=== PATIENT | female | born 1980 | race Caucasian/White ===

== ENCOUNTER 2021-10-17 09:20 | Outpatient (REF) | payer OTHER, SELFPAY ==
[2021-10-17 15:10] LABS: CT PCR NOT DETECTED (Not Detect.); NG PCR NOT DETECTED (Not Detect.)
[2021-10-18 12:28] LABS: BV Int Neg Control Negative (Negative); BV Int Pos Control Positive (Positive)
== END 2021-10-17 09:21 | disposition home or self-care (01) ==
LOC: HO.LAB 09:20
PROVIDERS: Visit Provider Obstetrics & Gynecology
DX: Z01.411 Encounter for gynecological examination (general) (routine) with abnormal findings (principal); N93.9 Abnormal uterine and vaginal bleeding, unspecified; N90.89 Other specified noninflammatory disorders of vulva and perineum
CPT/HCPCS: 87480; 87491; 87510; 87591; 87660; 99212

== ENCOUNTER 2021-11-28 08:56 | Outpatient (REF) | payer OTHER, SELFPAY | END 2021-11-28 08:57 | disposition home or self-care (01) | LOC: HO.LAB 08:56 | PROVIDERS: PCP Internal Medicine; Visit Provider Obstetrics & Gynecology | DX: N93.9 Abnormal uterine and vaginal bleeding, unspecified (principal); N90.89 Other specified noninflammatory disorders of vulva and perineum; L98.8 Other specified disorders of the skin and subcutaneous tissue; Z32.02 Encounter for pregnancy test, result negative | CPT/HCPCS: 11400; 56605; 56606; 58100; 81025; 88305 ==

== ENCOUNTER → 2021-12-18 10:39 | Outpatient (BNVA) | payer OTHER, SELFPAY | PROVIDERS: PCP Internal Medicine; Visit Provider Obstetrics & Gynecology | DX: Z30.09 Encounter for other general counseling and advice on contraception (principal); N90.89 Other specified noninflammatory disorders of vulva and perineum; Z80.3 Family history of malignant neoplasm of breast | CPT/HCPCS: 99212 ==

== ENCOUNTER 2022-12-25 15:25 | Outpatient (REF) | payer OTHER, SELFPAY ==
[2022-12-25 17:38] LABS: HCG Quantitative < 2 mIU/mL; Thyroid Stimulating Hormone 1.85 uIU/mL (0.32-4.0)
[2022-12-26 06:58] LABS: DHEA Sulfate 116 mcg/dL (19-237); Follicle Stimulating Hormone 8.8 mIU/mL; Prolactin 8.9 ng/mL
[2022-12-30 16:23] LABS: Testosterone, Total 24 ng/dL (2-45)
== END 2022-12-25 15:26 | disposition home or self-care (01) ==
LOC: HO.LAB 15:25
PROVIDERS: PCP Internal Medicine; Visit Provider Advanced Practice Midwife
DX: N92.6 Irregular menstruation, unspecified (principal); L68.0 Hirsutism; R23.2 Flushing; N91.2 Amenorrhea, unspecified; Z30.09 Encounter for other general counseling and advice on contraception
CPT/HCPCS: 36415; 81025; 82627; 83001; 83498; 84146; 84402; 84403; 84443; 84702; 99212

== ENCOUNTER 2022-12-25 15:25 | Outpatient (AMB) | payer OTHER, SELFPAY ==
[2022-12-25 15:26] VITALS: BP 100/60; BMI 19.8
--- NOTE | 2022-12-25 15:26 | MHC.OFFVIS ---
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 Crm Manager: Crm Manager Present (Peyton) Allergies diphenhydramine [From BENADRYL] Allergy (Unknown, Verified 12/25/22 15:33) HIVES hydrocodone [From VICODIN] Allergy (Unknown, Verified 12/25/22 15:33) HIVES oxycodone [Percocet] Allergy (Unknown, Verified 12/25/22 15:33) hives, nausea, vomiting, rash Benadryl Allergy (Unknown, Uncoded 12/25/22 15:33) unknown From PERCOCET Allergy (Unknown, Uncoded 12/25/22 15:33) UNKNOWN Vicodin Allergy (Unknown, Uncoded 12/25/22 15:33) unknown Is last menstrual period known: Yes Last menstrual period: 12/16/22 Post menopausal: No HPI HPI Comments History of Present Illness Details She is here for late menses, LMP 11/14/22. She reports a negative home test. Normal menses in the past they vary for several days in frequency. She also reports they will often sync up with her friends cycle. Currently sexually active and not using any form of BC. She does not want future . She is interested in the IUD. Denies any recent stress, medications, or surgeries. She admits to being sick this week due to exposure to smoking a hookah and vomited. Denies acne or hot flashes. Admits to new chin hairs over the last few years. [facility] Medical History (Updated 12/25/22 @ 16:20 by Dorothea Schuler) Abnormal facial hair Anterior cervical lymphadenopathy Anxiety control counseling Finger fracture, left (~09/2017) GERD (gastroesophageal reflux disease) Hirsutism IBS (irritable colon syndrome) Late menses Surgical History Hx laparoscopic cholecystectomy S/P myringotomy with insertion of tube Family History Father Cardiovascular disease Sister Breast cancer Maternal Grandmother Ovarian cancer Paternal Grandmother Breast cancer Ovarian cancer Paternal Grandfather Pancreatic cancer Paternal Aunt No problems noted. Social History Housing: House Alcohol intake: current Patient Tobacco Use Status: Former Tobacco user Tobacco use type: Cigarette Years Smoked: quit e-Cigarette/Vaping Use: Never Used Second Hand Smoke Exposure: No Current occupational status: employed Female Reproductive History Menstrual Duration of menses: 3-5 days Date of last menstrual period: 12/16/22 control method: none Total pregnancies: 0 Number of Living Children: 0 Physical Exam Vital Signs: Last Vital Signs BP 100/60 12/25/22 15:26 BMI result Body Mass Index 19.8 Const General: cooperative, healthy appearing, comfortable, no acute distress, well developed, alert and awake Results AMB Test Urine AMB Test Urine Negative Last Edit by JACK Alfredo on 12/25/22 15:39 Results Reviewed Results Reviewed: Laboratory Last Values [facility] Negative 12/25/22 15:38 Assessment & Plan Assessment & Plan (1) Late menses: Code(s): N92.6 - Irregular menstruation, unspecified Plan: Discussed: Counseled re: perimenopause vs menopause. Report any unscheduled bleeding, bleeding episodes less than 21 days apart or heavy prolonged menstrual bleeding. Repeat home UPT as needed. Recommended expected management and monitoring cycles. Patient preferred not to wait and requested labs sooner than later. Labs ordered today. Follow up TV-pt. preference. Encouraged patient to sign up for patient portal. All of her questions and concerns were addressed to the best of my ability and shared decision making. She is agreeable to plan of care. (2) control counseling: Code(s): Z30.09 - Encounter for other general counseling and advice on contraception Plan: Discussed different BC IUD options including Mirena, Kyleena and Nexplanon. Literature given. Advised to use condoms for now. (3) Hirsutism: Code(s): L68.0 - Hirsutism Orders: Orders 17 Hydroxyprogesterone Today L68.0 - Hirsutism, N92.6 - Irregular menstruation, unspecified DHEA Sulfate Today L68.0 - Hirsutism, N92.6 - Irregular menstruation, unspecified HCG Quantitative Today L68.0 - Hirsutism, N92.6 - Irregular menstruation, unspecified Prolactin Today L68.0 - Hirsutism, N92.6 - Irregular menstruation, unspecified Testosterone, Free/Total Today L68.0 - Hirsutism, N92.6 - Irregular menstruation, unspecified Thyroid Stimulating Hormone Today L68.0 - Hirsutism, N92.6 - Irregular menstruation, unspecified Follicle Stimulating Hormone Today L68.0 - Hirsutism, N92.6 - Irregular menstruation, unspecified, R23.2 - Flushing AMB HCG Urine Test Today N91.2 - Amenorrhea, unspecified Coding Level of Care Code Est Pt Level 3 (96976) Diagnoses Late menses N92.6 control counseling Z30.09 Hirsutism L68.0
== END 2022-12-25 16:01 | disposition home or self-care (01) ==
LOC: HO.HWS 15:25
PROVIDERS: PCP Internal Medicine; Visit Provider Advanced Practice Midwife
DX: N92.6 Irregular menstruation, unspecified (principal); Z30.09 Encounter for other general counseling and advice on contraception; L68.0 Hirsutism; N91.2 Amenorrhea, unspecified
CPT/HCPCS: 99213

== ENCOUNTER 2023-01-08 12:47 | Outpatient (AMB) | payer OTHER, SELFPAY ==
--- NOTE | 2023-01-08 12:47 | A.OFFVIS_ITS ---
Intake Intake Visit Reasons: TV Lab Results/TV ok per provider Intake Note: The patient agreed to use of a medical laboratory scientist during this encounter. Scribed for TRISTAN Canales by Dorothea Schuler medical laboratory scientist, on 01/08/2023 at 12:57 pm EST. Flexo Operator Required: No Allergies diphenhydramine [From BENADRYL] Allergy (Unknown, Verified 01/08/23 12:47) HIVES hydrocodone [From VICODIN] Allergy (Unknown, Verified 01/08/23 12:47) HIVES oxycodone [Percocet] Allergy (Unknown, Verified 01/08/23 12:47) hives, nausea, vomiting, rash Benadryl Allergy (Unknown, Uncoded 01/08/23 12:47) unknown From PERCOCET Allergy (Unknown, Uncoded 01/08/23 12:47) UNKNOWN Vicodin Allergy (Unknown, Uncoded 01/08/23 12:47) unknown Is last menstrual period known: Yes Last menstrual period: 01/01/23 Post menopausal: No HPI HPI Comments History of Present Illness Details Doximity live video 12:57 pm - 1:07 pm. Phone Call due to Covid-19 Pandemic. Video was utilized. She presents via phone/live video to discuss lab results due to irregular menses and facial hair. Recently while on vacation at [facility] she was seen at the ED, w/pelvic pain, and had other symptoms, was found to have Covid and ovarian cysts. Menses this week has been very heavy, she is still on quarantine at home. Covid symptoms- cough and cold. [facility] Medical History Abnormal facial hair Anterior cervical lymphadenopathy Anxiety control counseling Finger fracture, left (~09/2017) GERD (gastroesophageal reflux disease) Hirsutism IBS (irritable colon syndrome) Late menses Surgical History Hx laparoscopic cholecystectomy S/P myringotomy with insertion of tube Family History Father Cardiovascular disease Sister Breast cancer Maternal Grandmother Ovarian cancer Paternal Grandmother Breast cancer Ovarian cancer Paternal Grandfather Pancreatic cancer Paternal Aunt No problems noted. Social History Housing: House Alcohol intake: current Patient Tobacco Use Status: Former Tobacco user Tobacco use type: Cigarette Years Smoked: quit e-Cigarette/Vaping Use: Never Used Second Hand Smoke Exposure: No Current occupational status: employed Female Reproductive History Menstrual Duration of menses: 6-7 days Date of last menstrual period: 01/01/23 control method: none Physical Exam Const General: cooperative, healthy appearing, comfortable, no acute distress, well developed, alert and awake Results Reviewed Results Reviewed: Laboratory Tests 12/25/22 12/25/22 16:15 16:15 TSH 1.85 FSH 8.8 Prolactin 8.9 Total Testosterone 24 Fr Testosterone Dialys 1.0 DHEA Sulfate 116 Beta HCG, Quant < 2 17-Hydroxyprogesterone 58 Assessment & Plan Assessment & Plan (1) Encounter to discuss test results: Code(s): Z71.2 - Person consulting for explanation of examination or test findings Plan: Discussed: Lab results: normal. Release of records from [facility], will need them for review and a plan of care for the cyst follow up. She prefers not to do another transvaginal US at this time. Hydrate well, monitor VB, pelvic pain and if experience pain, dizziness, or lightheadedness report to ED. All of her questions and concerns were addressed to the best of my ability and shared decision making. She is agreeable to plan of care. Await reords for follow up. Telehealth Telehealth Location of provider rendering services: practice address Location of patient: address on file Patient Identification confirmed using: Name, : Yes Telehealth method: video Patient verbally consented to treatment: Yes Patient verbally consented to billing insurance company: Yes Patient informed of any privacy concerns related to visit: Yes Coding Level of Care Code Tele Est Pt Level 3 (31673) Diagnoses Encounter to discuss test results Z71.2
== END 2023-01-08 15:17 | disposition home or self-care (01) ==
LOC: HO.HWS 12:47
PROVIDERS: PCP Internal Medicine; Visit Provider Advanced Practice Midwife
DX: Z71.2 Person consulting for explanation of examination or test findings (principal)
CPT/HCPCS: 99213

== ENCOUNTER → 2023-01-08 12:47 | Outpatient (BNVA) | payer OTHER, SELFPAY | PROVIDERS: PCP Internal Medicine; Visit Provider Advanced Practice Midwife ==

== ENCOUNTER 2023-01-29 10:20 | Outpatient (AMB) | payer OTHER, SELFPAY ==
[2023-01-29 10:25] VITALS: BP 98/60; BMI 19.5
--- NOTE | 2023-01-29 10:25 | A.OFFVIS_ITS ---
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 On Site Nurse Required: No Information Interpreted: non-clinical & clinical Funeral Pre Arrangement Specialist: Funeral Pre Arrangement Specialist Present ([employer] JACK) Accompanied by: Self / Same As Patient Allergies diphenhydramine [From BENADRYL] Allergy (Unknown, Verified 01/29/23 10:30) HIVES hydrocodone [From VICODIN] Allergy (Unknown, Verified 01/29/23 10:30) HIVES oxycodone [Percocet] Allergy (Unknown, Verified 01/29/23 10:30) hives, nausea, vomiting, rash Benadryl Allergy (Unknown, Uncoded 01/29/23 10:30) unknown From PERCOCET Allergy (Unknown, Uncoded 01/29/23 10:30) UNKNOWN Vicodin Allergy (Unknown, Uncoded 01/29/23 10:30) unknown Is last menstrual period known: Yes Last menstrual period: 01/02/23 HPI HPI Comments History of Present Illness Details Presenting for annual exam. The patient went to the emergency room on 01/15 [facility] with pelvic pain and was diagnosed with a 4.7 cm left complex cyst possibly hydrosalpinx and was discharged home, since then the patient pelvic/abdominal pain and nausea and vomiting has resolved Last Pap/HPV was negative in 03/30 No previous screening Mammogram In addition the patient is interested in removing her bilateral vulvar skin tags [facility] Medical History Hirsutism Late menses Abnormal facial hair control counseling Anxiety GERD (gastroesophageal reflux disease) Anterior cervical lymphadenopathy IBS (irritable colon syndrome) Finger fracture, left (~09/2017) Surgical History Hx laparoscopic cholecystectomy S/P myringotomy with insertion of tube Family History Father Cardiovascular disease Sister Breast cancer Maternal Grandmother Ovarian cancer Paternal Grandmother Breast cancer Ovarian cancer Paternal Grandfather Pancreatic cancer Paternal Aunt No problems noted. Social History Household Members: Significant Other and Children Housing: House Alcohol intake: current Alcohol intake frequency: 3 or more drinks per day Patient Tobacco Use Status: Former Tobacco user Tobacco use type: Cigarette Years Smoked: quit e-Cigarette/Vaping Use: Never Used Second Hand Smoke Exposure: No Current occupational status: employed Current occupation: Realtor Sexually active: Yes Sexual orientation: Straight/Heterosexual Gender identity: Female Female Reproductive History Menstrual Date of last menstrual period: 01/02/23 control method: condoms Total pregnancies: 4 Full term: 3 Number of Living Children: 3 Ab induced: 1 Date of last pap smear: 03/26/19 Review of Systems Const All systems reviewed & are unremarkable except as noted in HPI and below Card Reports as per HPI Resp Reports as per HPI GI Reports as per HPI and Reports no additional complaints Reports as per HPI Physical Exam Vital Signs: Last Vital Signs BP 98/60 01/29/23 10:25 BMI result Body Mass Index 19.5 Const General: cooperative, healthy appearing and comfortable Chest Chest palpation & inspection: normal inspection of the chest and normal palpation of entire chest wall Breast/axilla inspection: normal inspection of the breasts and normal inspection of the axillae Breast/axilla palpation: normal palpation of the breasts, normal palpation of the axillae and no axillary lymphadenopathy Resp Effort & Inspection: normal respiratory effort Auscultation: clear to auscultation bilaterally Percussion: percussion normal Cardio Palpation: normal PMI Rate: regular rate Rhythm: regular rhythm Heart sounds: no murmurs and no rubs Peripheral pulses: Peripheral pulses 2+ throughout GI Inspection: Yes normal to inspection Palpation (GI): Soft to palpation, nontender, no guarding, not rigid and No hepatosplenomegaly present Percussion: Yes normal to percussion Auscultation: normal bowel sounds Rectal Exam - Female: deferred General: Yes bladder normal to palpation External Female Exam: lesion Speculum Exam - Vagina: normal appearance of the vagina, normal palpation, normal vaginal discharge and not erythematous Speculum Exam - Cervix: normal appearance of the cervix and normal palpation Bimanual exam- vagina & uterus: normal bimanual exam, normal palpation, uterine size normal, bladder normal to palpation, consistency normal and normal palpation Bimanual Exam- Adnexa, other: normal adnexae, no masses and no tenderness Office Procedures REFRIGERATED CARGO CLERK Biopsy Before the procedure was started d/w patient the procedure, alternatives ( do nothing, medical rx), & all the risks associated with the procedure ( bleeding , infection, vulvar scarring, painful intercourse, injury to vessels, possible need for transfusion with all its risks) then patient signed the consent. Preop dx: 3 right labia majora an 1 left labia majora skin tags Op: 3 right labia majora an 1 left labia majora skin tags excision Post op: Same Anesthesia: Lidocaine 1% 7 cc used Procedure: Using betadine the area was scrubbed and draped in the usual manner. 3 cc of lidocaine was used for anesthesia at the 3 right labia majora an 1 left labia majora skin tags areas ; using scissors and pickup the 3 right labia majora an 1 left labia majora skin tags were excised. Pressure was used for hemostasis. The patient tolerated the procedure well. Discharge Instructions: The patient was instructed to schedule an appointment in 2 weeks for follow-up and to call if temp>100.4, area of the biopsy redness or pain, nausea/vomiting. This note was generated with a voice recognition program. Some errors may have been overlooked during the review of this note. Sometimes these errors may affect the content or meaning of a given sentence. 56359-Rwsrdu of Vulva/Perineum 16386-Wrposj of Vulva/Perineum, additional site Procedure code (CPT) selection complete Assessment & Plan Assessment & Plan (1) Well woman exam: Code(s): Z01.419 - Encounter for gynecological examination (general) (routine) without abnormal findings Plan: Cotesting not indicated this year. Mammogram ordered. Counseled the patient about the recommended dietary allowance of 1000 mg of Calcium & 600 IU of vitamin D. The patient was instructed to perform monthly self-breast exams and to schedule an annual exam in a year; All questions answered and the patient verbalized understanding. Instructed the patient to schedule annual exam in a year (2) Complex cyst of uterine adnexa: Code(s): N83.8 - Other noninflammatory disorders of ovary, fallopian tube and broad ligament Plan: UPT done in the office was negative, GC/CT taken. Discussed with the patient the complex ovarian cyst by ultrasound. Discussed with the patient the Ultrasound findings, the main limitation of transvaginal ultrasonography alone as a diagnostic tool to distinguish benign from malignant masses relates to its lack of specificity and low positive predictive value for cancer. The differential diagnosis discussed with the patient includes the following but not limited to: benign and malignant gynecological and non-gynecological causes. Laboratory evaluation include UPT and GC/CT , serum tumor marker CA 125 . Discussed with the patient that CA 125 is a protein associated with epithelial ovarian malignancies, but also frequently expressed at lower levels by nonmalignant tissue. Elevation of CA 125 levels may occur in nonmalignant gynecologic conditions, and in non-gynecologic cancers, It is most useful in postmenopausal women and in identifying non mucinous epithelial cancer. The CA 125 level is elevated in 80% of patients with epithelial ovarian cancer but in only 50% of patients with stage I disease. The overall sensitivity of CA 125 testing in distinguishing benign from malignant adnexal masses reportedly ranges from 61% to 90%; discussed with the patient the specificity, positive predictive value and negative predictive value. Discussed with the patient options of treatment , in case CA 125 is not elevated, including laparoscopy ovarian cystectomy/oophorectomy vs. expectant management with repeat US in repeating pelvic US in 12 weeks from previous US. If the ovarian complex cyst is persistent larger and / or more complex looking, or higher CA 125 will refer to gynecologic Oncology. All pros, cons, risks and benefits of each approach were discussed with the patient including but not limited to a delay in the diagnosis and treatment of ovarian cancer affecting the prognosis; The patient decided to go ahead with expectant management. Instructions given the patient to schedule a 3 months follow-up ultrasound appointment. All questions were answered & the patient verbalized understanding and agreed with the plan. (3) Vulvar lesion: Comment: Right labia x3 Left labia x1 Code(s): N90.89 - Other specified noninflammatory disorders of vulva and perineum Plan: Excision of bilateral labial skin tags done, see procedure note Orders: Orders CA-125 Today N83.8 - Other noninflammatory disorders of ovary, fallopian tube an d broad ligament Surgical Today N90.89 - Other specified noninflammatory disorders of vulva and perineum MM screening mammo BI Today Z12.31 - Encounter for screening mammogram for malignant neoplasm of breast US pelvic and transvaginal 3 Months N83.299 - Other ovarian cyst, unspecified side AMB REFRIGERATED CARGO CLERK Biopsy Today N90.89 - Other specified noninflammatory disorders of vulva and perineum CT NG by PCR Today N83.8 - Other noninflammatory disorders of ovary, fallopian tube and broad ligament Coding Level of Care Code Est Pt Level 3 (57748) Est Pt Prev Care 40-64y(99673) Diagnoses Well woman exam Z01.419 Complex cyst of uterine adnexa N83.8 Vulvar lesion N90.89 CPT Codes REFRIGERATED CARGO CLERK Biopsy - CPT: 84553-Ysagus of Vulva/Perineum ([id number]) REFRIGERATED CARGO CLERK Biopsy - CPT: 82581-Flqras of Vulva/Perineum, additional site ([id number])
== END 2023-01-29 11:28 | disposition home or self-care (01) ==
PROVIDERS: Visit Provider Obstetrics & Gynecology
DX: Z01.419 Encounter for gynecological examination (general) (routine) without abnormal findings (principal); N83.8 Other noninflammatory disorders of ovary, fallopian tube and broad ligament; N90.89 Other specified noninflammatory disorders of vulva and perineum
CPT/HCPCS: 56605; 56606; 99213; 99396

== ENCOUNTER 2023-01-29 10:20 | Outpatient (REF) | payer OTHER, SELFPAY ==
[2023-01-29 16:45] LABS: CT PCR NOT DETECTED (Not Detect.); NG PCR NOT DETECTED (Not Detect.)
== END 2023-01-29 10:21 | disposition home or self-care (01) ==
LOC: HO.LNP 10:20
PROVIDERS: Visit Provider Obstetrics & Gynecology
DX: Z01.419 Encounter for gynecological examination (general) (routine) without abnormal findings (principal); N83.8 Other noninflammatory disorders of ovary, fallopian tube and broad ligament; N90.89 Other specified noninflammatory disorders of vulva and perineum; N83.299 Other ovarian cyst, unspecified side
CPT/HCPCS: 0353U; 56605; 56606; 88305; 88312; 99212; 99396

== ENCOUNTER 2023-05-01 10:16 | Outpatient (AMB) | payer OTHER, SELFPAY ==
--- NOTE | 2023-05-01 10:16 | A.OFFPC_ITS ---
Vital Signs 05/01/23 10:17 Height 5 ft 3 in Weight 109 lb BMI 19.3 BP 122/88 Blood Pressure Location Lt brachial Position Sitting Pulse 82 Pulse Source Auscultation Pulse Oximetry (%) 96 Oxygen Delivery Method Room Air Intake Visit Reasons: PE+ NEEDS PHQ9+THRIVE Executive Office Manager Required: No Accompanied by: Self / Same As Patient Allergies diphenhydramine [From BENADRYL] Allergy (Unknown, Verified 05/01/23 10:17) HIVES hydrocodone [From VICODIN] Allergy (Unknown, Verified 05/01/23 10:17) HIVES oxycodone [Percocet] Allergy (Unknown, Verified 05/01/23 10:17) hives, nausea, vomiting, rash Benadryl Allergy (Unknown, Uncoded 03/20/23 11:32) unknown From PERCOCET Allergy (Unknown, Uncoded 03/20/23 11:32) UNKNOWN Vicodin Allergy (Unknown, Uncoded 03/20/23 11:32) unknown Medication List - Last Reconciled 05/01/23 by Edilia Wiley MD ascorbic acid-collagen 30-833.3 mg (Collagen Skin Renewal) tabs PO biotin 1 mg PO DAILY cetirizine (Zyrtec) 10 mg PO DAILY PRN cyanocobalamin (vitamin B-12) 1,000 mcg PO DAILY lorazepam 1 mg PO DAILY PRN Tobacco use date assessed: 03/20/23 Dental Screening Dental Screen Date: 05/01/23 Did you have a dental visit in the last 12 months?: Yes Did you have a dental problem in the last 6 months where you did not have access to dental care?: No Was dental information given to patient?: Patient has dentist HPI PE+ NEEDS PHQ9+THRIVE HPI Details 42-year-old female with a history of gen eralized anxiety disorder and allergic rhinitis last seen in 2020 coming in for physical exam. Patient has seen the gynecology in January 2023 having pelvic pain with a 4.7 cm left complex cyst possibly hydrosalpinx. Patient has had some biopsy on the labia showing benign keratosis and polyp seborrheic keratosis this was done in January 2023 [facility] Medical History (Updated 05/01/23 @ 10:47 by Edilia Wiley MD) Hirsutism Late menses Abnormal facial hair control counseling Family planning advice Family planning Well woman exam Anterior cervical lymphadenopathy Anxiety GERD (gastroesophageal reflux disease) IBS (irritable colon syndrome) Finger fracture, left (~09/2017) Surgical History Hx laparoscopic cholecystectomy S/P myringotomy with insertion of tube Family History Father Cardiovascular disease Sister Breast cancer Maternal Grandmother Ovarian cancer Paternal Grandmother Breast cancer Ovarian cancer Paternal Grandfather Pancreatic cancer Paternal Aunt No problems noted. Social History (Updated 05/01/23 @ 10:35 by Edilia Wiley MD) Household Members: Significant Other and Children Housing: House Alcohol intake: current Alcohol intake frequency: 3 or more drinks per day Comment: 1-2 a week 2 glasses Patient Tobacco Use Status: Former Tobacco user Tobacco use type: Cigarette Years Smoked: quit 1999 e-Cigarette/Vaping Use: Never Used Second Hand Smoke Exposure: No service: No Current occupational status: employed Current occupation: [employer] Current occupational exposures/hazards: No Sexual orientation: Straight/Heterosexual Gender identity: Female Cognitive needs: No Hearing needs: No Vision needs: Yes Questionnaire PHQ-9 Over the last 2 weeks, how often have you been bothered by any of the following problems? 1. Little interest or pleasure in doing things: several days 2. Feeling down, depressed, or hopeless: not at all 3. Trouble falling or staying asleep, or sleeping too much: more than half the days 4. Feeling tired or having little energy: not at all 5. Poor appetite or overeating: not at all 6. Feeling bad about yourself - or that you are a failure or have let yourself or your family down: not at all 7. Trouble concentrating on things, such as reading the newspaper or watching television: more than half the days 8. Moving or speaking so slowly that other people could have noticed. Or the opposite - being so fidgety or restless that you have been moving around a lot more than usual: not at all 9. Thoughts that you would be better off or of hurting yourself in some way: not at all Total score: 5 Depression Screening Interpretation: Positive Depression Screening Done: Yes 08400 - PHQ-9 Billing: Yes Source: Developed by Drs. Dell Vasquez, Justa Enrique, Ronald Farmer and colleagues, with an educational meaghan from [employer]. Thrive Questionnaire Date Thrive assessed: 05/01/23 I am a: Patient What is your living situation today?: I have a steady place to live Within the past 12 months, did the food you bought not last and you didn't have the money to get more?: Never true Within the past 12 months, did you worry whether your food would run out before you got money to buy more?: Never true Do you have trouble paying for medicines?: No Do you have trouble getting transportation to medical appointments?: No Do you have trouble paying your heating and electricity bill?: No Do you have trouble taking care of your child, family member or friend?: No Do you have trouble with day-to-day activities such as bathing, preparing meals, shopping, managing finances, etc.?: No Are you currently unemployed and looking for a job?: No Are you interested in more education?: No Please select the resources that you would like help with: None Currently or been in a relationship where the following occur: no concerns reported AUDIT C Alcohol Use Questionnaire (AUDIT-C) 1. How often do you have a drink containing alcohol?: 2-3 times a week 2. How many drinks containing alcohol do you have on a typical day when you are drinking?: 1 or 2 3. How often do you have six or more drinks on one occasion?: Never Total Score: 3 BRENT-7 AMB Questionnaire BRENT-7 Date BRENT - 7 assessed: 05/01/23 Feeling nervous, anxious, or on edge: 3 = Nearly every day Not being able to stop or control worryin = More than half the days Worrying too much about different things: 2 = More than half the days Trouble relaxin = More than half the days Being so restless that it is hard to sit still: 1 = Several days Becoming easily annoyed or irritable: 1 = Several days Feeling afraid as if something awful might happen: 2 = More than half the days Total BRENT-7 score (0-4 normal; 5-9 mild; 10-14 moderate; 15-21 severe): 13 Source: Developed by Drs. Dell L. ChristinaJusta morel, Ronald Farmer and colleagues, with an educational meaghan from [employer]. BRENT-7 Assessment Billing BRENT-7 Assessment Tool: BRENT-7 Assessment 60396 Review of Systems Const Denies poor appetite and Denies weakness Eyes Denies no additional complaints ENT Reports Normal hearing present, Denies dizziness, Denies nasal congestion, Denies tinnitus and Denies sore throat Card Denies chest pain, Denies syncope, Denies rapid heart rate and Denies dyspnea Resp Denies cough and Denies dyspnea GI Denies change in stool character, Reports constipation, Denies diarrhea, Denies nausea and Denies vomiting Denies urinary frequency, Denies difficulty voiding and Denies dysuria Neuro Reports Normal hearing present, Denies confusion, Denies dizziness, Denies syncope and Denies weakness Psych Denies confusion Physical exam (Primary Care) Vital Signs: Oxygen Delivery Method Room Air 05/01/23 10:17 BMI result Body Mass Index 19.3 Tobacco/Smoking Status: Tobacco use Status Tobacco use date assessed 03/20/23 03/20/23 11:34 Patient Tobacco Use Status Former Tobacco user 03/20/23 11:34 Tobacco use type Cigarette 03/20/23 11:34 e-Cigarette/Vaping Use Never Used 03/20/23 11:34 Depression Screening Interpretation: Positive Thrive Assessment: Date of Thrive Assessment Date Thrive assessed 03/20/23 03/20/23 11:34 Currently or been in a relationship where the following occur: no concerns reported Const General: alert and awake; No confusion Orientation/consciousness: No confusion HENMT Head: Yes normocephalic Ears: external ears normal and TM's normal bilaterally Face and sinus: Yes normal facial exam Mouth: moist mucous membranes Throat: Yes tonsils normal Eyes Conjunctivae: conjunctivae normal Pupils: Equal, round and reactive pupils present and Pupil accommodation reflex normal Direct Ophthalmoscopy: normal light reflex Neck Neck: No lymphadenopathy Thyroid: Thyroid normal Chest Chest palpation & inspection: normal inspection of the chest Resp Effort & Inspection: normal respiratory effort and no audible wheezes Auscultation: clear to auscultation bilaterally, no crackles, no wheezes and lung sounds not diminished Cardio Rate: regular rate Rhythm: regular rhythm Peripheral pulses: radial pulses present and dorsalis pedis present GI Palpation (GI): no masses Auscultation: normal bowel sounds and normoactive bowel sounds Rectal Exam - Female: deferred Skin General skin exam: no rashes or lesions noted Rashes: no rashes Neuro General: deep tendon reflexes 2+ bilaterally and No confusion Cranial nerves: Yes Equal, round and reactive pupils present, Yes Midline tongue present, Yes Normal hearing present and Yes Ability to bilaterally elevate shoulders present Cognition (Neuro): normal cognition Gait exam (Neuro): Normal gait present Motor exam (neuro): 5/5 motor strength present throughout Deep tendon reflexes (DTR's): Right brachioradialis reflex intensity grade: 2+, Left brachioradialis reflex intensity grade: 2+, Right patellar reflex intensity grade: 2+ and Left patellar reflex intensity grade: 2+ Extrem General: No edema Assessment and Plan Assessment & Plan (1) Annual physical exam: Code(s): Z00.00 - Encounter for general adult medical examination without abnormal findings (2) Allergic rhinitis: Code(s): J30.9 - Allergic rhinitis, unspecified Qualifiers: Allergic rhinitis seasonality: seasonal Allergic rhinitis trigger: unspecified Qualified Code(s): J30.2 - Other seasonal allergic rhinitis Plan: Continue with allergy medication as needed (3) GERD (gastroesophageal reflux disease): Code(s): K21.9 - Gastro-esophageal reflux disease without esophagitis Plan: Avoid the foods that causes that usually spicy foods, tomato products, juices, coffee, soda and foods that your sensitive to. After eating do not lie down, allow 3-4 hours before in lie down. And keep the head of bed above 30 degrees to avoid the acid from going up. (4) Generalized anxiety disorder: Comment: Declined any referral for counseling, Code(s): F41.1 - Generalized anxiety disorder Plan: Continue with medication as needed (5) Complex cyst of uterine adnexa: Code(s): N83.8 - Other noninflammatory disorders of ovary, fallopian tube and broad ligament Plan: Patient follows up with Gynecology and planned repeat US (6) Breast cancer screening by mammogram: Code(s): Z12.31 - Encounter for screening mammogram for malignant neoplasm of breast Plan: Reminded about mammogram (7) Upper back pain on left side: Code(s): M54.9 - Dorsalgia, unspecified (8) Nail dystrophy: Comment: L big toe Code(s): L60.3 - Nail dystrophy Orders: Orders Comprehensive Met. Panel Today F41.1 - Generalized anxiety disorder Free T4 (Free Thyroxine) Today F41.1 - Generalized anxiety disorder Thyroid Stimulating Hormone Today F41.1 - Generalized anxiety disorder Vitamin D 25-OH Total Today F41.1 - Generalized anxiety disorder PT Evaluation and Treatment Today M54.9 - Dorsalgia, unspecified Complete Blood Count Auto Diff Today F41.1 - Generalized anxiety disorder Lipid Panel Today E78.00 - Pure hypercholesterolemia, unspecified, F41.1 - Generalized anxiety disorder Vitamin B12 and Folate Today F41.1 - Generalized anxiety disorder Referrals Podiatry Referral L60.3 - Nail dystrophy Medications: New escitalopram oxalate (Lexapro) 5 mg PO DAILY 30 tabs 4RF F41.1 - Generalized anxiety disorder Refilled lorazepam 1 mg PO DAILY PRN 10 tabs 0RF anxiety F41.1 - Generalized anxiety disorder Coding Level of Care Code Est Pt Prev Care 40-64y(18146) Diagnoses Annual physical exam Z00.00 Seasonal allergic rhinitis, unspecified trigger J30.2 Allergic rhinitis seasonality: seasonal Allergic rhinitis trigger: unspecified GERD (gastroesophageal reflux disease) K21.9 Generalized anxiety disorder F41.1 Complex cyst of uterine adnexa N83.8 Breast cancer screening by mammogram Z12.31 Upper back pain on left side M54.9 Nail dystrophy L60.3 Additional Codes BRENT-7 Assessment Billing - BRENT-7 Assessment Tool: BRENT-7 Assessment 67656 ([id number])
[2023-05-01 10:17] VITALS: BP 122/88; PULSE 82; O2SAT 96; BMI 19.3
== END 2023-05-01 11:44 | disposition home or self-care (01) ==
PROVIDERS: PCP Internal Medicine; Visit Provider Internal Medicine
DX: Z00.00 Encounter for general adult medical examination without abnormal findings (principal); J30.2 Other seasonal allergic rhinitis; K21.9 Gastro-esophageal reflux disease without esophagitis; F41.1 Generalized anxiety disorder; N83.8 Other noninflammatory disorders of ovary, fallopian tube and broad ligament; M54.9 Dorsalgia, unspecified; L60.3 Nail dystrophy
CPT/HCPCS: 96127; 99396

== ENCOUNTER 2023-10-08 13:44 | Outpatient (AMB) | payer OTHER, SELFPAY ==
--- NOTE | 2023-10-08 13:44 | MHC.PC.OV ---
Intake Visit Reasons: Med Follow Up/[phone] Licensed Tax Consultant Required: No Allergies diphenhydramine [From BENADRYL] Allergy (Unknown, Verified 10/08/23 13:46) HIVES hydrocodone [From VICODIN] Allergy (Unknown, Verified 10/08/23 13:46) HIVES oxycodone [Percocet] Allergy (Unknown, Verified 10/08/23 13:46) hives, nausea, vomiting, rash Benadryl Allergy (Unknown, Uncoded 10/08/23 13:46) unknown From PERCOCET Allergy (Unknown, Uncoded 10/08/23 13:46) UNKNOWN Vicodin Allergy (Unknown, Uncoded 10/08/23 13:46) unknown Tobacco use date assessed: 10/08/23 Dental Screening Dental Screen Date: 05/14/23 HPI [facility] Follow Up/[phone] HPI Details 40-year-old obese female with a history of ADHD on Vyvanse, generalized anxiety disorder fatty liver coming in for follow-up. Last seen in 03/31/2023. [facility] Medical History (Updated 05/01/23 @ 10:47 by Edilia Wiley MD) Hirsutism Late menses Abnormal facial hair control counseling Family planning advice Family planning Well woman exam Anterior cervical lymphadenopathy Anxiety GERD (gastroesophageal reflux disease) IBS (irritable colon syndrome) Finger fracture, left (~09/2017) Surgical History Hx laparoscopic cholecystectomy S/P myringotomy with insertion of tube Family History Father Cardiovascular disease Sister Breast cancer Maternal Grandmother Ovarian cancer Paternal Grandmother Breast cancer Ovarian cancer Paternal Grandfather Pancreatic cancer Paternal Aunt No problems noted. Social History (Updated 05/01/23 @ 10:35 by Edilia Wiley MD) Household Members: Significant Other and Children Housing: House Alcohol intake: current Alcohol intake frequency: 3 or more drinks per day Comment: 1-2 a week 2 glasses Patient Tobacco Use Status: Former Tobacco user Tobacco use type: Cigarette Years Smoked: quit 1999 e-Cigarette/Vaping Use: Never Used Second Hand Smoke Exposure: No service: No Current occupational status: employed Current occupation: Realtor Current occupational exposures/hazards: No Sexual orientation: Straight/Heterosexual Gender identity: Female Cognitive needs: No Hearing needs: No Vision needs: Yes Questionnaire Thrive Questionnaire Date Thrive assessed: 05/01/23 AUDIT C Alcohol Use Questionnaire (AUDIT-C) 1. How often do you have a drink containing alcohol?: 2-3 times a week 2. How many drinks containing alcohol do you have on a typical day when you are drinking?: 1 or 2 3. How often do you have six or more drinks on one occasion?: Never Total Score: 3 BRENT-7 AMB Questionnaire BRENT-7 Date BRENT - 7 assessed: 10/08/23 Source: Developed by Drs. Dell Vasquez, Justa Enrique, Ronald Farmer and colleagues, with an educational meaghan from [employer]. Physical exam (Primary Care) Tobacco/Smoking Status: Tobacco use Status Tobacco use date assessed 10/08/23 10/08/23 13:47 Patient Tobacco Use Status Former Tobacco user 10/08/23 13:47 Tobacco use type Cigarette 10/08/23 13:47 e-Cigarette/Vaping Use Never Used 10/08/23 13:47 Thrive Assessment: Date of Thrive Assessment Date Thrive assessed 05/01/23 10/08/23 13:47 Telehealth Telehealth Telehealth Platform: Telephone Location of provider rendering services: practice address Location of patient: address on file Patient Identification confirmed using: Name, : Yes Telehealth method: voice only (iphone ( patient is driving ) ) Patient verbally consented to treatment: Yes Patient verbally consented to billing insurance company: Yes Patient informed of any privacy concerns related to visit: Yes Minutes spent on Phone/Video with Pt.: 25 Assessment and Plan Assessment & Plan (1) Generalized anxiety disorder: Comment: Declined any referral for counseling, Code(s): F41.1 - Generalized anxiety disorder Plan: Continuing with Lexapro and lorazepam as needed. Had a long discussion with the patient regarding the anxiety that she is having and regarding the medication that she is taking. Advised to take lorazepam as needed but to avoid anything that she needs concentration on when under the medication as she will be under the influence of this medication. . Patient has never started on Lexapro and feels that she is doing better right now (2) GERD (gastroesophageal reflux disease): Code(s): K21.9 - Gastro-esophageal reflux disease without esophagitis Plan: Avoid the foods that causes that usually spicy foods, tomato products, juices, coffee, soda and foods that your sensitive to. After eating do not lie down, allow 3-4 hours before in lie down. And keep the head of bed above 30 degrees to avoid the acid from going up. (3) Breast cancer screening by mammogram: Code(s): Z. - Encounter for screening mammogram for malignant neoplasm of breast Plan: Patient is reminded about the mammogram and reminded about the blood work. Orders: Orders MM tomosynthesis screening BI Today Z. - Encounter for screening mammogram for malignant neoplasm of breast Medications: Refilled lorazepam 1 mg PO DAILY PRN 20 tabs 0RF anxiety F41.1 - Generalized anxiety disorder Discontinued escitalopram oxalate (Lexapro) Discontinued Reason: Patient Refused 5 mg PO DAILY 90 tabs 1RF F41.1 - Generalized anxiety disorder Coding Level of Care Code Tele Est Pt Level 4 (64215) Diagnoses Generalized anxiety disorder F41.1 GERD (gastroesophageal reflux disease) K21.9 Breast cancer screening by mammogram Z05.11
== END 2023-10-08 14:28 | disposition home or self-care (01) ==
LOC: HO.HMGH 13:44
PROVIDERS: PCP Internal Medicine; Visit Provider Internal Medicine
DX: F41.1 Generalized anxiety disorder (principal); K21.9 Gastro-esophageal reflux disease without esophagitis; Z12.31 Encounter for screening mammogram for malignant neoplasm of breast
CPT/HCPCS: 99214

== ENCOUNTER 2024-03-19 13:19 | Outpatient (AMB) | payer OTHER, SELFPAY ==
--- NOTE | 2024-03-19 13:22 | MHC.PC.OV ---
Vital Signs 03/19/24 13:23 Height 5 ft 3 in Weight 117 lb 2 oz BMI 20.7 BP 110/60 Blood Pressure Location Lt brachial Position Sitting Pulse 93 Pulse Source Pulse Oximeter Pulse Oximetry (%) 92 Oxygen Delivery Method Room Air Intake Visit Reasons: PE Intake Note: Patient is here today for a physical. Pt decline flu shot today. Ear Machine Operator Required: No Sales Exec: Not Required per policy Accompanied by: Self / Same As Patient Allergies diphenhydramine [From BENADRYL] Allergy (Unknown, Verified 03/19/24 13:23) HIVES hydrocodone [From VICODIN] Allergy (Unknown, Verified 03/19/24 13:23) HIVES oxycodone [Percocet] Allergy (Unknown, Verified 03/19/24 13:23) hives, nausea, vomiting, rash Benadryl Allergy (Unknown, Uncoded 03/19/24 13:23) unknown From PERCOCET Allergy (Unknown, Uncoded 03/19/24 13:23) UNKNOWN Vicodin Allergy (Unknown, Uncoded 03/19/24 13:23) unknown Medication List - Last Reconciled 03/19/24 by Edilia Wiley MD ascorbic acid-collagen 30-833.3 mg (Collagen Skin Renewal) tabs PO [BEE pollen PO] biotin 1 mg PO DAILY cetirizine (Zyrtec) 10 mg PO DAILY PRN cyanocobalamin (vitamin B-12) 1,000 mcg PO DAILY lorazepam 1 mg PO DAILY PRN Tobacco use date assessed: 03/19/24 Dental Screening Dental Screen Date: 05/14/23 HPI PE HPI Details 76-year-old obese male with history of impaired glucose tolerance gout COPD hypertension BPH lumbar degenerative disc disease bilateral knee osteoarthritis severe obstructive sleep apnea coming in for follow-up. Last seen in 11/27/2023. Patient's colonoscopy is up-to-date 2022. Patient follows up with Pulmonary February 11 2024 with this obstructive sleep apnea. Advised to get pulmonary function test. Patient was advised to get a CT scan of the chest also for smoking history. [facility] History (Updated 03/19/24 @ 13:30 by Edilia Wiley MD) Hirsutism Late menses Abnormal facial hair control counseling Family planning advice Family planning Well woman exam Anterior cervical lymphadenopathy Anxiety GERD (gastroesophageal reflux disease) IBS (irritable colon syndrome) Finger fracture, left (~09/2017) Surgical History Hx laparoscopic cholecystectomy S/P myringotomy with insertion of tube Family History Father Cardiovascular disease Sister Breast cancer Maternal Grandmother Ovarian cancer Paternal Grandmother Breast cancer Ovarian cancer Paternal Grandfather Pancreatic cancer Paternal Aunt No problems noted. Social History (Updated 03/19/24 @ 13:33 by Edilia Wiley MD) Household Members: Significant Other and Children Housing: House Alcohol intake: current Alcohol intake frequency: 3 or more drinks per day Comment: 2-3 a week glass of wine/sake Patient Tobacco Use Status: Former Tobacco user Tobacco use type: Cigarette Years Smoked: quit 1999 e-Cigarette/Vaping Use: Never Used Second Hand Smoke Exposure: No service: No Current occupational status: employed Current occupation: Realtor Current occupational exposures/hazards: No Sexual orientation: Straight/Heterosexual Gender identity: Female Cognitive needs: No Hearing needs: No Vision needs: Yes Questionnaire PHQ-9 Over the last 2 weeks, how often have you been bothered by any of the following problems? 1. Little interest or pleasure in doing things: not at all 2. Feeling down, depressed, or hopeless: not at all 3. Trouble falling or staying asleep, or sleeping too much: more than half the days 4. Feeling tired or having little energy: several days 5. Poor appetite or overeating: not at all 6. Feeling bad about yourself - or that you are a failure or have let yourself or your family down: not at all 7. Trouble concentrating on things, such as reading the newspaper or watching television: not at all 8. Moving or speaking so slowly that other people could have noticed. Or the opposite - being so fidgety or restless that you have been moving around a lot more than usual: not at all 9. Thoughts that you would be better off or of hurting yourself in some way: not at all Total score: 3 Depression Screening Interpretation: Negative Depression Screening Done: Yes Source: Developed by Drs. Dell Vasquez, Justa BRonald Trimble and colleagues, with an educational meaghan from [employer]. Thrive Questionnaire Date Thrive assessed: 03/19/24 I am a: Patient What is your living situation today?: I have a steady place to live Within the past 12 months, did the food you bought not last and you didn't have the money to get more?: Often true Within the past 12 months, did you worry whether your food would run out before you got money to buy more?: Often true Do you have trouble paying for medicines?: No Do you have trouble getting transportation to medical appointments?: No Do you have trouble paying your heating and electricity bill?: No Do you have trouble taking care of your child, family member or friend?: No Do you have trouble with day-to-day activities such as bathing, preparing meals, shopping, managing finances, etc.?: No Are you currently unemployed and looking for a job?: No Are you interested in more education?: No Please select the resources that you would like help with: None Currently or been in a relationship where the following occur: No concerns reported THRIVE Score: 2 AUDIT C Alcohol Use Questionnaire (AUDIT-C) 2. How many drinks containing alcohol do you have on a typical day when you are drinking?: 3 or 4 Total Score: 1 BRENT-7 AMB Questionnaire BRENT-7 Date BRENT - 7 assessed: 03/19/24 Feeling nervous, anxious, or on edge: 1 = Several days Not being able to stop or control worryin = Not at all Worrying too much about different things: 1 = Several days Trouble relaxin = Several days Being so restless that it is hard to sit still: 1 = Several days Becoming easily annoyed or irritable: 0 = Not at all Feeling afraid as if something awful might happen: 0 = Not at all Total BRENT-7 score (0-4 normal; 5-9 mild; 10-14 moderate; 15-21 severe): 4 Source: Developed by Drs. Dell Vasquez, Ronald Granados and colleagues, with an educational meaghan from [employer]. Review of Systems Const Denies poor appetite and Denies weakness Eyes Denies no additional complaints ENT Reports Normal hearing present, Denies dizziness, Denies nasal congestion, Denies tinnitus and Denies sore throat Card Denies chest pain, Denies syncope, Denies rapid heart rate and Denies dyspnea Resp Denies cough and Denies dyspnea GI Denies change in stool character, Reports constipation, Denies diarrhea, Denies nausea and Denies vomiting Denies urinary frequency, Denies difficulty voiding and Denies dysuria Neuro Reports Normal hearing present, Denies confusion, Denies dizziness, Denies syncope and Denies weakness Psych Denies confusion Physical exam (Primary Care) Vital Signs: Last Vital Signs Pulse 93 03/19/24 13:23 BP 110/60 03/19/24 13:23 Pulse Ox 92 03/19/24 13:23 Oxygen Delivery Method Room Air 03/19/24 13:23 BMI result Body Mass Index 20.7 Tobacco/Smoking Status: Tobacco use Status Tobacco use date assessed 03/19/24 03/19/24 13:27 Patient Tobacco Use Status Former Tobacco user 03/19/24 13:27 Tobacco use type Cigarette 03/19/24 13:27 e-Cigarette/Vaping Use Never Used 03/19/24 13:27 PHQ-9: PHQ-9 Score PHQ-9: Total score 3 03/19/24 13:27 Depression Screening Interpretation: Negative Thrive Assessment: Date of Thrive Assessment Date Thrive assessed 03/19/24 03/19/24 13:27 Currently or been in a relationship where the following occur: No concerns reported Const General: No confusion Orientation/consciousness: No confusion HENMT Head: Yes normocephalic Ears: external ears normal and TM's normal bilaterally Face and sinus: Yes normal facial exam Mouth: moist mucous membranes Throat: Yes tonsils normal Eyes Conjunctivae: conjunctivae normal Pupils: Equal, round and reactive pupils present and Pupil accommodation reflex normal Direct Ophthalmoscopy: normal light reflex Neck Neck: No lymphadenopathy Thyroid: Thyroid normal Chest Chest palpation & inspection: normal inspection of the chest Resp Effort & Inspection: normal respiratory effort and no audible wheezes Auscultation: clear to auscultation bilaterally, no crackles, no wheezes and lung sounds not diminished Cardio Rate: regular rate Rhythm: regular rhythm Peripheral pulses: radial pulses present and dorsalis pedis present GI Palpation (GI): no masses Auscultation: normal bowel sounds and normoactive bowel sounds Rectal Exam - Female: deferred Skin General skin exam: no rashes or lesions noted Rashes: no rashes Neuro General: No confusion Cranial nerves: Yes Equal, round and reactive pupils present and Yes Normal hearing present Cognition (Neuro): normal cognition Gait exam (Neuro): Normal gait present Motor exam (neuro): 5/5 motor strength present throughout Deep tendon reflexes (DTR's): Right brachioradialis reflex intensity grade: 2+, Left brachioradialis reflex intensity grade: 2+, Right patellar reflex intensity grade: 2+ and Left patellar reflex intensity grade: 2+ Extrem General: No edema Coding Level of Care Code Est Pt Prev Care 40-64y(12831) Diagnoses Annual physical exam Z00.00 Breast cancer screening by mammogram Z12. Generalized anxiety disorder F41.1 Gastroesophageal reflux disease without esophagitis K21.9 Esophagitis presence: without esophagitis Assessment & Plan Assessment & Plan (1) Annual physical exam: Code(s): Z00.00 - Encounter for general adult medical examination without abnormal findings Category: Medical Plan: Patient is advised to eat healthy, keep well hydrated, keep active and have adequate sleep. (2) Breast cancer screening by mammogram: Code(s): Z12. - Encounter for screening mammogram for malignant neoplasm of breast Category: Medical Plan: Patient is reminded about the mammogram (3) Generalized anxiety disorder: Comment: Declined any referral for counseling, Code(s): F41.1 - Generalized anxiety disorder Category: Social Hx Plan: Continue with present medication as needed (4) GERD (gastroesophageal reflux disease): Code(s): K21.9 - Gastro-esophageal reflux disease without esophagitis Category: Medical Qualifiers: Esophagitis presence: without esophagitis Qualified Code(s): K21.9 - Gastro-esophageal reflux disease without esophagitis Plan: Avoid the foods that causes that usually spicy foods, tomato products, juices, coffee, soda and foods that your sensitive to. After eating do not lie down, allow 3-4 hours before in lie down. And keep the head of bed above 30 degrees to avoid the acid from going up.
[2024-03-19 13:23] VITALS: BP 110/60; PULSE 93; O2SAT 92; BMI 20.7
== END 2024-03-19 14:10 | disposition home or self-care (01) ==
PROVIDERS: PCP Internal Medicine; Visit Provider Internal Medicine
DX: Z00.00 Encounter for general adult medical examination without abnormal findings (principal); Z12.31 Encounter for screening mammogram for malignant neoplasm of breast; F41.1 Generalized anxiety disorder; K21.9 Gastro-esophageal reflux disease without esophagitis

== ENCOUNTER → 2024-03-19 13:19 | Outpatient (BNVA) | payer OTHER, SELFPAY | PROVIDERS: PCP Internal Medicine; Visit Provider Internal Medicine | DX: Z00.00 Encounter for general adult medical examination without abnormal findings (principal); F41.1 Generalized anxiety disorder; K21.9 Gastro-esophageal reflux disease without esophagitis | CPT/HCPCS: 96127; 99396 ==

== ENCOUNTER 2024-08-23 15:29 | Outpatient (AMB) | payer OTHER, SELFPAY ==
--- NOTE | 2024-08-23 15:33 | A.OFFPC_ITS ---
Vital Signs 08/23/24 15:35 Height 5 ft 3 in Weight 114 lb 6 oz BMI 20.3 BP 110/70 Blood Pressure Location Lt brachial Position Sitting Pulse 64 Pulse Source Pulse Oximeter Temp Source Temporal Artery Scan Pulse Oximetry (%) 94 Oxygen Delivery Method Room Air Intake Visit Reasons: finger infection Intake Note: Patient is here to follow up on Finger infection. Clinical Resource Manager Required: No Lumber Sorter Machine: Not Required per policy Accompanied by: Self / Same As Patient Allergies diphenhydramine [From BENADRYL] Allergy (Unknown, Verified 08/23/24 15:35) HIVES hydrocodone [From VICODIN] Allergy (Unknown, Verified 08/23/24 15:35) HIVES oxycodone [Percocet] Allergy (Unknown, Verified 08/23/24 15:35) hives, nausea, vomiting, rash Benadryl Allergy (Unknown, Uncoded 08/23/24 15:35) unknown From PERCOCET Allergy (Unknown, Uncoded 08/23/24 15:35) UNKNOWN Vicodin Allergy (Unknown, Uncoded 08/23/24 15:35) unknown Tobacco use date assessed: 08/23/24 Dental Screening Dental Screen Date: 08/23/24 Did you have a dental visit in the last 12 months?: Yes Did you have a dental problem in the last 6 months where you did not have access to dental care?: No Was dental information given to patient?: Patient has dentist HPI finger infection HPI Details The patient is a 44-year-old female presenting with paronychia of the left middle finger. The condition developed approximately four to five days ago with initial symptoms resembling a minor hangnail irritation. She initially treated it by soaking in peroxide which provided some relief. However, the situation worsened the following day, with significant pain development and purulent discharge described as yellowish. The patient attempted self-treatment with a topical antibiotic for five days, which only marginally reduced her symptoms. The patient experiences severe throbbing pain, disrupting her sleep, and expresses concern about the nail growth further exacerbating the condition by exerting pressure on the inflamed area. Despite the reduction in pus, her symptoms persist, prompting her inquiry about potential need for surgical intervention to address the problem. [facility] Medical History Hirsutism Late menses Abnormal facial hair control counseling Family planning advice Family planning Well woman exam Anterior cervical lymphadenopathy Anxiety GERD (gastroesophageal reflux disease) IBS (irritable colon syndrome) Finger fracture, left (~09/2017) Surgical History Hx laparoscopic cholecystectomy S/P myringotomy with insertion of tube Family History Father Cardiovascular disease Sister Breast cancer Maternal Grandmother Ovarian cancer Paternal Grandmother Breast cancer Ovarian cancer Paternal Grandfather Pancreatic cancer Paternal Aunt No problems noted. Social History Household Members: Significant Other and Children Housing: House Alcohol intake: current Alcohol intake frequency: 3 or more drinks per day Comment: 2-3 a week glass of wine/sake Patient Tobacco Use Status: Former Tobacco user Tobacco use type: Cigarette Years Smoked: quit 1999 e-Cigarette/Vaping Use: Never Used Second Hand Smoke Exposure: Yes service: No Current occupational status: employed Current occupation: [employer] Current occupational exposures/hazards: No Sexual orientation: Straight/Heterosexual Gender identity: Female Cognitive needs: No Hearing needs: No Vision needs: Yes Questionnaire PHQ-9 Over the last 2 weeks, how often have you been bothered by any of the following problems? 1. Little interest or pleasure in doing things: not at all 2. Feeling down, depressed, or hopeless: not at all 3. Trouble falling or staying asleep, or sleeping too much: not at all 4. Feeling tired or having little energy: not at all 5. Poor appetite or overeating: not at all 6. Feeling bad about yourself - or that you are a failure or have let yourself or your family down: not at all 7. Trouble concentrating on things, such as reading the newspaper or watching television: not at all 8. Moving or speaking so slowly that other people could have noticed. Or the opposite - being so fidgety or restless that you have been moving around a lot more than usual: not at all 9. Thoughts that you would be better off or of hurting yourself in some way: not at all Total score: 0 Depression Screening Interpretation: Negative Depression Screening Done: Yes 88694 - PHQ-9 Billing: Yes Source: Developed by Drs. Dell Vasquez, Justa Enrique, Ronald Farmer and colleagues, with an educational meaghan from [employer]. Thrive Questionnaire Date Thrive assessed: 08/23/24 I am a: Patient What is your living situation today?: I have a steady place to live Within the past 12 months, did the food you bought not last and you didn't have the money to get more?: Never true Within the past 12 months, did you worry whether your food would run out before you got money to buy more?: Never true Do you have trouble paying for medicines?: No Do you have trouble getting transportation to medical appointments?: No Do you have trouble paying your heating and electricity bill?: No Do you have trouble taking care of your child, family member or friend?: No Do you have trouble with day-to-day activities such as bathing, preparing meals, shopping, managing finances, etc.?: No Are you currently unemployed and looking for a job?: No Are you interested in more education?: No Please select the resources that you would like help with: None Currently or been in a relationship where the following occur: No concerns reported THRIVE Score: 0 AUDIT C Alcohol Use Questionnaire (AUDIT-C) 2. How many drinks containing alcohol do you have on a typical day when you are drinking?: 3 or 4 Total Score: 1 BRENT-7 AMB Questionnaire BRENT-7 Date BRENT - 7 assessed: 08/23/24 Feeling nervous, anxious, or on edge: 0 = Not at all Not being able to stop or control worryin = Not at all Worrying too much about different things: 0 = Not at all Trouble relaxin = Not at all Being so restless that it is hard to sit still: 0 = Not at all Becoming easily annoyed or irritable: 0 = Not at all Feeling afraid as if something awful might happen: 0 = Not at all Total BRENT-7 score (0-4 normal; 5-9 mild; 10-14 moderate; 15-21 severe): 0 Source: Developed by Justa Peace Kurt Kroenke and colleagues, with an educational meaghan from [employer]. BRENT-7 Assessment Billing BRENT-7 Assessment Tool: BRENT-7 Assessment 44899 Review of Systems Skin/Breast Details: - Skin: Reports soreness and pus from the affected finger, initially resembling a hangnail; describes the possibility of the nail causing irritation. - General: Reports sleep disruption due to throbbing pain in the finger. Physical exam (Primary Care) Vital Signs: Last Vital Signs Pulse 64 08/23/24 15:35 BP 110/70 08/23/24 15:35 Pulse Ox 94 08/23/24 15:35 Oxygen Delivery Method Room Air 08/23/24 15:35 BMI result Body Mass Index 20.3 Tobacco/Smoking Status: Tobacco use Status Tobacco use date assessed 08/23/24 08/23/24 15:36 Patient Tobacco Use Status Former Tobacco user 08/23/24 15:36 Tobacco use type Cigarette 08/23/24 15:36 e-Cigarette/Vaping Use Never Used 08/23/24 15:36 PHQ-9: PHQ-9 Score PHQ-9: Total score 0 08/23/24 15:55 Depression Screening Interpretation: Negative Thrive Assessment: Date of Thrive Assessment Date Thrive assessed 08/23/24 08/23/24 15:36 Currently or been in a relationship where the following occur: No concerns reported Skin Nails: other (left middle finger nail, lateral aspect edema/erythema, tender touch) Coding Level of Care Code Est Pt Level 3 (70979) Diagnoses Paronychia of left middle finger L03.012 Additional Codes PHQ-9 - 45646 - PHQ-9 Billing: Yes ([id number]) BRENT-7 Assessment Billing - BRENT-7 Assessment Tool: BRENT-7 Assessment 66376 ([id number]) Time Spent (min) 29 Assessment & Plan Assessment & Plan (1) Paronychia of left middle finger: Code(s): L03.012 - Cellulitis of left finger Category: Medical Plan: - Continue applying the topical antibiotic as directed. - start oral antibiotics. - Keep the affected area clean and dry. - Apply a clean Band-Aid to protect the site. - Monitor for any increase in redness, swelling, or pus. - Follow up if symptoms do not improve, if pain persists, or if new symptoms develop. - Seek medical attention if you experience fever, severe pain, or other concerning symptoms. Medications: New cephalexin 500 mg PO BID 7 days 14 caps 0RF
[2024-08-23 15:35] VITALS: BP 110/70; PULSE 64; O2SAT 94; BMI 20.3
== END 2024-08-23 16:08 | disposition home or self-care (01) ==
LOC: HO.HMCH 15:29
PROVIDERS: PCP Internal Medicine
DX: L03.012 Cellulitis of left finger (principal)

== ENCOUNTER → 2024-08-23 15:29 | Outpatient (BNVA) | payer OTHER, SELFPAY | PROVIDERS: PCP Internal Medicine | DX: L03.012 Cellulitis of left finger (principal) | CPT/HCPCS: 96127; 99212 ==

== ENCOUNTER 2024-12-22 13:31 | Outpatient (AMB) | payer OTHER, SELFPAY ==
--- NOTE | 2024-12-22 13:42 | MHC.OFFVIS ---
Intake Visit Reasons: irregular bleeding Allergies diphenhydramine (From BENADRYL) Allergy (Unknown, Verified 08/23/24 15:35) HIVES hydrocodone (From VICODIN) Allergy (Unknown, Verified 08/23/24 15:35) HIVES oxycodone (Percocet) Allergy (Unknown, Verified 08/23/24 15:35) hives, nausea, vomiting, rash Benadryl Allergy (Unknown, Uncoded 08/23/24 15:35) unknown From PERCOCET Allergy (Unknown, Uncoded 08/23/24 15:35) UNKNOWN Vicodin Allergy (Unknown, Uncoded 08/23/24 15:35) unknown HPI Comments Details: The patient is presenting c/o irregular bleeding associated with passage of blood clots and abdominal cramping. it started few months ago and is getting worse no other associated symptoms. Last co testing 03/30 was negative No previous screening mammogram [facility] Medical History Hirsutism Late menses Abnormal facial hair control counseling Family planning advice Family planning Well woman exam Anterior cervical lymphadenopathy Anxiety GERD (gastroesophageal reflux disease) IBS (irritable colon syndrome) Finger fracture, left (~09/2017) Surgical History Hx laparoscopic cholecystectomy S/P myringotomy with insertion of tube Family History Father Cardiovascular disease Sister Breast cancer Maternal Grandmother Ovarian cancer Paternal Grandmother Breast cancer Ovarian cancer Paternal Grandfather Pancreatic cancer Paternal Aunt No problems noted. Social History Household Members: Significant Other and Children Housing: House Alcohol intake: current Alcohol intake frequency: 3 or more drinks per day Comment: 2-3 a week glass of wine/sake Patient Tobacco Use Status: Former Tobacco user Tobacco use type: Cigarette Years Smoked: quit 1999 e-Cigarette/Vaping Use: Never Used Second Hand Smoke Exposure: Yes service: No Current occupational status: employed Current occupation: Realtor Current occupational exposures/hazards: No Sexual orientation: Straight/Heterosexual Gender identity: Female Cognitive needs: No Hearing needs: No Vision needs: Yes Review of Systems Const All systems reviewed & are unremarkable except as noted in HPI and below Card Reports as per HPI Resp Reports as per HPI GI Reports as per HPI and Reports no additional complaints Reports as per HPI Physical Exam Const General: cooperative, healthy appearing and comfortable Chest Chest palpation & inspection: normal inspection of the chest and normal palpation of entire chest wall Breast/axilla inspection: normal inspection of the breasts and normal inspection of the axillae Breast/axilla palpation: normal palpation of the breasts, normal palpation of the axillae and no axillary lymphadenopathy Resp Effort & Inspection: normal respiratory effort Auscultation: clear to auscultation bilaterally Percussion: percussion normal Cardio Palpation: normal PMI Rate: regular rate Rhythm: regular rhythm Heart sounds: no murmurs and no rubs Peripheral pulses: Peripheral pulses 2+ throughout GI Inspection: Yes normal to inspection Palpation (GI): Soft to palpation, nontender, no guarding, not rigid and No hepatosplenomegaly present Percussion: Yes normal to percussion Auscultation: normal bowel sounds Rectal Exam - Female: deferred General: Yes bladder normal to palpation External Female Exam: No lesion Speculum Exam - Vagina: normal appearance of the vagina, normal palpation, normal vaginal discharge and not erythematous Speculum Exam - Cervix: normal appearance of the cervix and normal palpation Bimanual exam- vagina & uterus: normal bimanual exam, normal palpation, uterine size normal, bladder normal to palpation, consistency normal and normal palpation Bimanual Exam- Adnexa, other: normal adnexae, no masses and no tenderness Assessment & Plan Assessment & Plan (1) Abnormal uterine bleeding: Code(s): N93.9 - Abnormal uterine and vaginal bleeding, unspecified Category: Medical Plan: Urine test done in the office and was negative. Screening mammogram ordered. Co testing done, GC and chlamydia taken CBC, TSH, HCG, and pelvic ultrasound ordered. Discussed with the patient the different causes of abnormal bleeding including thyroid disorders, uterine and ovarian pathology, endometrial hyperplasia, carcinoma and other potential causes. Discussed with the patient the work up including CBC (to r/o anemia), TSH, pelvic Ultrasound, endometrial biopsy to r/o endometrial pathology. All questions answered and the patient verbalized understanding. Instructed the patient to schedule an appointment for an endometrial biopsy in 2 weeks. Orders: Orders US pelvic and transvaginal Today N93.9 - Abnormal uterine and vaginal bleeding, unspecified Complete Blood Count no Diff Today N93.9 - Abnormal uterine and vaginal bleeding, unspecified MM screening mammo BI Today Z12.31 - Encounter for screening mammogram for malignant neoplasm of breast TSH reflex Free T4 Today N93.9 - Abnormal uterine and vaginal bleeding, unspecified HCG Quantitative Today N93.9 - Abnormal uterine and vaginal bleeding, unspecified Coding Level of Care Code Est Pt Level 3 (51453) Diagnoses Abnormal uterine bleeding N93.9
--- OUTSIDE RECORDS SUMMARY | 2024-12-22 13:59 | XMS_ITS | Clinical Summary ---
Author Organization [facility] [place] [address] Care Team Providers Care Adult Daycare Coordinator Name Role Phone Unavailable Primary Care Provider Unavailabl e Social History Tobacco Use Types Packs/Day Years Used Date Smoking Tobacco: Never Assessed Comments Unknown Sex and Gender Information Value Date Recorded Sex Assigned at Not on file Legal Sex Female 2:16 AM EST Gender Identity Not on file Sexual Orientation Not on file Plan of Treatment Health Maintenance Due Date Last Done Comments HIV screen 2000 Hepatitis C Screening 2000 Hepatitis B vaccine (0-59 yrs) and Risk (1) 2001 Tetanus/Diphtheria/Pertussis Vaccines (1 - Tdap) 08/15 HPV test 2012 PAP Smear 2012 Breast Cancer Share Decision Needed 2022 Breast Cancer screening 2022 Covid-19 Vaccine ( season) 2024 Influenza (Flu) vaccine (1 o f 1 - Influenza standard series) 01/10/2025
--- OUTSIDE RECORDS SUMMARY | 2024-12-22 13:59 | XMS_ITS | Encounter Summary ---
Author Organization [facility] Address [address] [place] [phone] Phone Care Team Providers Care Bus Starter Name Role Phone Edilia Wiley MD Primary Care Provider [phone] Encounter Details Date Type Department Care Team (Late st Contact Info) Description 01/15/2023 Procedure Pass [facility], Ct Scan - [facility] [address] [place] [address] Social History Tobacco Use Types Packs/Day Years Used Date Smoking Tobacco: Never Assessed Education Answer Date Recorded Are you interested in more education? Not on malachi e 01/15/2023 Are you concerned about learning? Not on file 01/15/2023 No 01/15/2023 No 01/15/2023 Digital Access Answer Date Recorded No 01/15/2023 No 01/15/2023 Reliable internet access at home? Not on file 01/15/2023 Device with a working camera? Not on file Intimate Partner Violence Answer Date R ecorded Are you denied basic needs s uch as food, clothing, or medical care? No 01/15/2023 In the past 12 months have y ou been in a relationship with a person who hurts, threatens, or tries to control you? No 01/15/2023 Are you denied basic needs s uch as food, clothing, or medical care? No 01/15/2023 In the past 12 months have y ou been in a relationship with a person who hurts, threatens, or tries to control you? No 01/15/2023 Comments Unknown Sex and Gender Information Value Date Recorded Sex Assigned at Not on file Legal Sex Female 5:56 PM EST Gender Identity Not on file Sexual Orientation Not on file documented as of this encounter Functional Status * Calculated C-SSRS Risk Score (Lifetime/Recent) Answer Date of Assessment Author No Risk Indicated 01/15/2023 5:01 PM EDT Za Crawford RN * [place] Suicide Severity Rating Scale (Screener/Recent Self-Report) Question Answer Date of Assessment Author 1. Wish to be (Past 1 Month) No 023 5:01 PM EDT Lelia Crawford RN 2. Non-Specific Active Suici marixa Thoughts (Past 1 Month) No 01/15/2023 5:01 PM EDT Lelia Crawford RN 6. Suicidal Behavior (Lifetime) No 5:01 PM EDT Lelia Crawford RN documented as of this encounter Plan of Treatment Not on file documented as of this encounter Visit Diagnoses Not on filedocumented in this encounter Additional Health Concerns Infection Onset Date Last Indicated Resolved Time COVID-19 01/04/2023 01/04/2023 01/25/2023 1:24 AM EDT documented as of this encounter Care Teams Bus Starter Relationship Specialty Start Date End Date Edilia Wiley MD [address] [place] [phone] PCP - General 11/09/13 documented as of this encounter Additional Source Comments The information contained in this document represents components of the legal health record. It is not the complete legal health record.[facility]
== END 2024-12-22 13:59 | disposition home or self-care (01) ==
LOC: HO.HWS 13:32
PROVIDERS: PCP Internal Medicine; Visit Provider Obstetrics & Gynecology
DX: Z32.02 Encounter for pregnancy test, result negative (principal); N93.9 Abnormal uterine and vaginal bleeding, unspecified
CPT/HCPCS: 99213

== ENCOUNTER 2024-12-22 13:31 | Outpatient (REF) | payer OTHER, SELFPAY ==
[2024-12-22 20:05] LABS: CT PCR NOT DETECTED (Not Detect.); NG PCR NOT DETECTED (Not Detect.)
== END 2024-12-22 13:32 | disposition home or self-care (01) ==
LOC: HO.LNP 13:31
PROVIDERS: PCP Internal Medicine; Visit Provider Obstetrics & Gynecology
DX: N93.9 Abnormal uterine and vaginal bleeding, unspecified (principal); Z32.02 Encounter for pregnancy test, result negative
CPT/HCPCS: 81025; 87491; 87591; 87626; 88175; 99212

== ENCOUNTER 2025-02-15 11:02 | Outpatient (REF) | payer OTHER, SELFPAY ==
--- NOTE | ~2025-02-15 | US_ITS ---
CLINICAL HISTORY: N93.9 - Abnormal uterine and vaginal bleeding, unspecified US pelvis transabdominal with Doppler Comparison: None provided Findings: Transabdominal scanning performed. Anteverted uterus is 9.1 cm length. There is a 3.2 cm fibroid noted along the right aspect of the uterine body. No endometrial lesion, 8.5 mm thickness. Right ovary 4.2 x 3 x 2.3 cm. There is a 3.3 cm cyst containing an internal septation. Left ovary 2.6 x 2 x 1.6 cm. Normal color Doppler with arterial/venous spectral tracing of both ovaries. No free fluid. IMPRESSION: 3.3 cm right adnexal cyst exhibiting internal septation. Three-month follow-up ultrasound recommended. There is a 3.2 cm uterine fibroid. No torsion. This document has been electronically signed by: Bernardino Dorado MD on 02/16/2025 11:01:37
[2025-02-15 12:25] LABS: Hematocrit 36.2 % (37.0-47.0); Hemoglobin 12.5 g/dl (12.0-16.0); Mean Corpuscular HGB Conc 34.5 g/dl (31.0-35.0); Mean Corpuscular Hemoglobin 34.5 pg (27.0-33.0); Mean Corpuscular Volume 100.0 fL (80.0-98.0); NRBC Abs Auto 0.000 X10*3/uL (0.0-0.012); NRBC Pct Auto 0.0 /100WBC (0.0-0.2); Platelet Count 243 X10*3/uL (160-400); Red Blood Count 3.62 X10*6/uL (4.20-5.50); White Blood Count 6.0 X10*3/uL (4.8-10.8)
--- OUTSIDE RECORDS SUMMARY | 2025-02-15 13:42 | XMS_ITS | Clinical Summary ---
Author Organization [facility] [place] [address] Care Team Providers Care Checker Product Design Name Role Phone Unavailable Primary Care Provider [...] Breast Cancer screening 2022 Covid-19 Vaccine ( - season) 2025 Influenza (Flu) vaccine (1 o f 1 - Influenza standard series) 01/10/2025
--- OUTSIDE RECORDS SUMMARY | 2025-02-15 13:43 | XMS_ITS | Clinical Summary ---
Author Organization [facility] Address [address] [facility] [address] [place] [phone] Phone Care Team Providers Care Quiller Machine Fixer Name Role Phone Edilia Wiley MD Primary Care Provider [phone] Allergies Active Allergy Reactions Criticality Noted Date Comments Oxycodone Hives,Sweating Low 01/15/2023 Hydrocodone-Acetaminophen Hives,Nausea a nd/or Vomiting,Sweating Low 01/15/2023 Medications ondansetron (ZOFRAN-ODT) 4 MG disintegrating tablet Take 1 tablet (4 mg total) by mouth every 8 (eight) hours as needed for nausea. 12 tablet 3 Active Social History Tobacco Use Types Packs/Day Years [...] on file Sexual Orientation Not on file Last Filed Vital Signs Vital Sign Reading Time Taken Comments Blood Pressure 122/87 01/15/2023 9:14 PM EDT Pulse 64 01/15/2023 9:14 PM EDT Temperature 36.8 C (98.2 F) 01/15/2023 9:14 PM EDT Respiratory Rate 16 01/15/2023 9:14 PM EDT Oxygen Saturation 100% 01/15/2023 9:14 PM EDT Inhaled Oxygen Concentration - - Weight 49 kg (108 lb) 01/15/2023 4:53 PM EDT Height 157.5 cm (5' 2 ) 01/15/2023 4:53 PM EDT Body Mass Index 19.75 01/15/2023 4:53 PM EDT Plan of Treatment Not on file Medical Devices Not on file Insurance [place] [address] [place] [address] ACO [facility] Care Teams Quiller Machine Fixer Relationship Specialty Start Date End Date Edilia Wiley MD [address] [place] [address] [place] [phone] PCP - General 11/09/13 Additional Source Comments The information contained in this document represents components of the legal health record. It is not the complete legal health record.[facility]
--- OUTSIDE RECORDS SUMMARY | 2025-02-15 13:43 | XMS_ITS | Encounter Summary ---
Author Organization [facility] Address [address] [place] [phone] Phone Care Team Providers Care Radar Air Traffic Controller Name Role Phone Edilia Wiley MD Primary Care Provider [phone] Encounter Details Date Type Department Care Team (Late st Contact Info) Description 01/15/2023 Procedure Pass [facility], Ct Scan - [facility] [address] [place] [address] Social History Tobacco Use Types Packs/Day Years [...] 5:01 PM EDT Za Crawford RN * [place] Suicide Severity Rating Scale (Screener/Recent Self-Report) Question [...] documented as of this encounter Care Teams Radar Air Traffic Controller Relationship Specialty Start Date End Date Edilia Wiley MD [address] [place] [phone] PCP - General 11/09/13 documented as of this encounter Additional Source Comments The information contained in this document represents components of the legal health record. It is not the complete legal health record.[facility]
== END 2025-02-15 11:03 | disposition home or self-care (01) ==
LOC: HO.US 11:02
PROVIDERS: Absent Provider Internal Medicine; PCP Internal Medicine; Visit Provider Obstetrics & Gynecology
DX: N93.9 Abnormal uterine and vaginal bleeding, unspecified (principal)
CPT/HCPCS: 36415; 76856; 84443; 84702; 85027

== ENCOUNTER 2025-03-15 14:36 | Outpatient (AMB) | payer OTHER, SELFPAY ==
[2025-03-15 14:42] VITALS: BP 138/92; BMI 20.2
--- NOTE | 2025-03-15 14:42 | MHC.OFFVIS ---
Vital Signs 03/15/25 14:42 03/15/25 15:06 Height 5 ft 3 in Weight 114 lb BMI 20.2 BP 138/92 H 140/90 H Intake Visit Reasons: Ultrasound follow up E Business Consultant Required: No Information Interpreted: non-clinical & clinical Accompanied by: Self / Same As Patient Allergies diphenhydramine (From BENADRYL) Allergy (Unknown, Verified 03/15/25 14:43) HIVES hydrocodone (From VICODIN) Allergy (Unknown, Verified 03/15/25 14:43) HIVES oxycodone (Percocet) Allergy (Unknown, Verified 03/15/25 14:43) hives, nausea, vomiting, rash Benadryl Allergy (Unknown, Uncoded 03/15/25 14:43) unknown From PERCOCET Allergy (Unknown, Uncoded 03/15/25 14:43) UNKNOWN Vicodin Allergy (Unknown, Uncoded 03/15/25 14:43) unknown Is last menstrual period known: Yes Last menstrual period: 03/13/25 HPI Comments Details: Presenting for ultrasound follow-up and EMB 03/05 pelvic ultrasound showed the following: IMPRESSION: 3.3 cm right adnexal cyst exhibiting internal septation. Three-month follow-up ultrasound recommended. There is a 3.2 cm uterine fibroid. No torsion. [facility] Medical History Hirsutism Late menses Abnormal facial hair control counseling Family planning advice Family planning Well woman exam Anterior cervical lymphadenopathy Anxiety GERD (gastroesophageal reflux disease) IBS (irritable colon syndrome) Finger fracture, left (~09/2017) Surgical History Hx laparoscopic cholecystectomy S/P myringotomy with insertion of tube Family History Father Cardiovascular disease Sister Breast cancer Maternal Grandmother Ovarian cancer Paternal Grandmother Breast cancer Ovarian cancer Paternal Grandfather Pancreatic cancer Paternal Aunt No problems noted. Social History Household Members: Significant Other and Children Housing: House Alcohol intake: current Alcohol intake frequency: 3 or more drinks per day Comment: 2-3 a week glass of wine/sake Patient Tobacco Use Status: Former Tobacco user Tobacco use type: Cigarette Years Smoked: quit 1999 e-Cigarette/Vaping Use: Never Used Second Hand Smoke Exposure: Yes service: No Current occupational status: employed Current occupation: Realtor Current occupational exposures/hazards: No Sexual orientation: Straight/Heterosexual Gender identity: Female Cognitive needs: No Hearing needs: No Vision needs: Yes Female Reproductive History Menstrual Date of last menstrual period: 03/13/25 Review of Systems Const All systems reviewed & are unremarkable except as noted in HPI and below Reports as per HPI and Reports no additional complaints GI Reports no additional complaints Reports no additional complaints Assessment & Plan Assessment & Plan (1) Abnormal uterine bleeding: Code(s): N93.9 - Abnormal uterine and vaginal bleeding, unspecified Category: Medical Plan: EMB offered, the patient would like to defer EMB for next visit within 2 weeks. Instructions given the patient to schedule a 2 week EMB appointment (2) Complex ovarian cyst: Code(s): N83.299 - Other ovarian cyst, unspecified side Category: Medical Plan: Discussed with the patient the complex ovarian cyst by ultrasound. Discussed with the patient the Ultrasound findings, the main limitation of transvaginal ultrasonography alone as a diagnostic tool to distinguish benign from malignant masses relates to its lack of specificity and low positive predictive value for cancer. The differential diagnosis discussed with the patient includes the following but not limited to: benign and malignant gynecological and non-gynecological causes. Laboratory evaluation include Userum tumor marker CA 125 . Discussed with the patient that CA 125 is a protein associated with epithelial ovarian malignancies, but also frequently expressed at lower levels by nonmalignant tissue. Elevation of CA 125 levels may occur in nonmalignant gynecologic conditions, and in non-gynecologic cancers, It is most useful in postmenopausal women and in identifying non mucinous epithelial cancer. The CA 125 level is elevated in 80% of patients with epithelial ovarian cancer but in only 50% of patients with stage I disease. The overall sensitivity of CA 125 testing in distinguishing benign from malignant adnexal masses reportedly ranges from 61% to 90%; discussed with the patient the specificity, positive predictive value and negative predictive value. Discussed with the patient options of treatment , in case CA 125 is not elevated, including laparoscopy ovarian cystectomy/oophorectomy vs. expectant management with repeat US in repeating pelvic US in 6 weeks from previous US. If the ovarian complex cyst is persistent larger and / or more complex looking, or higher CA 125 will refer to gynecologic Oncology. All pros, cons, risks and benefits of each approach were discussed with the patient including but not limited to a delay in the diagnosis and treatment of ovarian cancer affecting the prognosis; The patient decided to go ahead with expectant management. Instructions given the patient to schedule a 6 week follow-up ultrasound appointment. All questions were answered & the patient verbalized understanding and agreed with the plan. (3) Uterine myoma: Code(s): D25.9 - Leiomyoma of uterus, unspecified Category: Medical Plan: Discussed with the patient the findings on pelvic ultrasound & the risk of myosarcoma; in addition reviewed with the patient that malignancy and pre malignancy cannot be ruled out without hysterectomy for pathological evaluation ; furthermore, explained to the patient the limitation of pelvic ultrasound and endometrial biopsy in the setting. Discussed with the patient the options of treatment including expectant management versus hysterectomy; the pros and cons, risks benefits of each approach were discussed with the patient including the fact that in cases of myosarcoma, surgical treatment can lead to early diagnosis and positively affects the prognosis; after further discussion, the patient decided to proceed with expectant management. Will repeat pelvic ultrasound periodically. Instructions given to patient to call in case any of the following occurs: pressure symptoms, abnormal uterine bleeding, pelvic pain; and to schedule a 9 months pelvic ultrasound (order placed) and a follow-up appointment . All questions answered, the patient verbalized understanding and agreed with the plan . Orders: Orders US pelvic and transvaginal 6 Weeks N83.299 - Other ovarian cyst, unspecified side CA-125 Today N83.299 - Other ovarian cyst, unspecified side US pelvic and transvaginal 9 Months D25.9 - Leiomyoma of uterus, unspecified Coding Level of Care Code Est Pt Level 3 (91065) Diagnoses Abnormal uterine bleeding N93.9 Complex ovarian cyst N83.299 Uterine myoma D25.9
[2025-03-15 15:06] VITALS: BP 140/90
--- OUTSIDE RECORDS SUMMARY | 2025-03-15 17:38 | XMS_ITS | Clinical Summary ---
Author Organization [facility] [place] [address] Care Team Providers Care Economic Analysis Director Name Role Phone Unavailable Primary Care Provider [...]
--- OUTSIDE RECORDS SUMMARY | 2025-03-15 17:38 | XMS_ITS | Encounter Summary ---
Author Organization [facility] Address [address] [place] [address] Phone Care Team Providers Care Drug Enforcement Administration Agent Name Role Phone Edilia Wiley MD Primary Care Provider [phone] Encounter Details Date Type Department Care Team (Late st Contact Info) Description 01/15/2023 Procedure Pass [facility], Ct Scan - [facility] [address] [place] [address] Social History Tobacco Use Types Packs/Day Years [...] 5:01 PM EDT Za Crawford RN * [place] Suicide Severity Rating Scale (Screener/Recent Self-Report) Question [...] documented as of this encounter Care Teams Drug Enforcement Administration Agent Relationship Specialty Start Date End Date Edilia Wiley MD [address] [place] [phone] PCP - General 11/09/13 documented as of this encounter Additional Source Comments The information contained in this document represents components of the legal health record. It is not the complete legal health record.[facility]
--- OUTSIDE RECORDS SUMMARY | 2025-03-15 17:38 | XMS_ITS | Clinical Summary ---
Author Organization [facility] Address [address] [facility] [address] [place] [address] Phone Care Team Providers Care Adjunct Faculty Instructor Name Role Phone Edilia Wiley MD Primary Care Provider [phone] Allergies Active Allergy Reactions Criticality Noted Date [...] Medical Devices Not on file Insurance [place] [place] [address] ACO [facility] ACO [facility] ACO Care Teams Adjunct Faculty Instructor Relationship Specialty Start Date End Date Edilia Wiley MD [address] [place] [address] [place] [phone] PCP - General 11/09/13 Additional Source Comments The information contained in this document represents components of the legal health record. It is not the complete legal health record.[facility]
== END 2025-03-15 15:21 | disposition home or self-care (01) ==
PROVIDERS: PCP Internal Medicine; Visit Provider Obstetrics & Gynecology
DX: N93.9 Abnormal uterine and vaginal bleeding, unspecified (principal); N83.299 Other ovarian cyst, unspecified side; D25.9 Leiomyoma of uterus, unspecified
CPT/HCPCS: 99213

== ENCOUNTER → 2025-03-15 14:36 | Outpatient (BNVA) | payer OTHER, SELFPAY | PROVIDERS: PCP Internal Medicine; Visit Provider Obstetrics & Gynecology | DX: Z71.2 Person consulting for explanation of examination or test findings (principal); N83.201 Unspecified ovarian cyst, right side; N93.9 Abnormal uterine and vaginal bleeding, unspecified; D25.9 Leiomyoma of uterus, unspecified | CPT/HCPCS: 99212 ==

== ENCOUNTER 2025-03-21 13:48 | Outpatient (AMB) | payer OTHER, SELFPAY ==
[2025-03-21 13:51] VITALS: BP 122/84; TEMP 36.2; BMI 21.1
--- NOTE | 2025-03-21 13:51 | A.OFFPC_ITS ---
Vital Signs 03/21/25 13:51 Height 5 ft 3 in Weight 119 lb 2 oz BMI 21.1 BP 122/84 Blood Pressure Location Lt brachial Position Sitting Temp 97.1 F Temp Source Temporal Artery Scan Intake Visit Reasons: PE Allergies diphenhydramine (From BENADRYL) Allergy (Unknown, Verified 03/21/25 13:55) HIVES hydrocodone (From VICODIN) Allergy (Unknown, Verified 03/21/25 13:55) HIVES oxycodone (Percocet) Allergy (Unknown, Verified 03/21/25 13:55) hives, nausea, vomiting, rash Benadryl Allergy (Unknown, Uncoded 03/21/25 13:55) unknown From PERCOCET Allergy (Unknown, Uncoded 03/21/25 13:55) UNKNOWN Vicodin Allergy (Unknown, Uncoded 03/21/25 13:55) unknown Medication List - Last Reconciled 03/21/25 by Edilia Wiley MD ascorbic acid-collagen 30-833.3 mg (Collagen Skin Renewal) tabs PO [BEE pollen PO] cetirizine (Zyrtec) 10 mg PO DAILY PRN cyanocobalamin (vitamin B-12) 1,000 mcg PO DAILY lorazepam 1 mg PO DAILY PRN Tobacco use date assessed: 03/21/25 Dental Screening Dental Screen Date: 03/21/25 Did you have a dental visit in the last 12 months?: Yes Did you have a dental problem in the last 6 months where you did not have access to dental care?: No Was dental information given to patient?: Patient has dentist [facility] Medical History Hirsutism Late menses Abnormal facial hair control counseling Family planning advice Family planning Well woman exam Anterior cervical lymphadenopathy Anxiety GERD (gastroesophageal reflux disease) IBS (irritable colon syndrome) Finger fracture, left (~09/2017) Surgical History Hx laparoscopic cholecystectomy S/P myringotomy with insertion of tube Family History (Updated 03/21/25 @ 14:03 by Edilia Wiley MD) Father Cardiovascular disease Sister No problems noted. Maternal Grandmother Ovarian cancer Paternal Grandmother Breast cancer Ovarian cancer Paternal Grandfather Pancreatic cancer Paternal Aunt No problems noted. Social History Household Members: Significant Other and Children Housing: House Alcohol intake: current Alcohol intake frequency: 3 or more drinks per day Comment: 2-3 a week glass of wine/sake Patient Tobacco Use Status: Former Tobacco user Tobacco use type: Cigarette Years Smoked: quit 1999 e-Cigarette/Vaping Use: Never Used Second Hand Smoke Exposure: Yes service: No Current occupational status: employed Current occupation: [employer] Current occupational exposures/hazards: No Sexual orientation: Straight/Heterosexual Gender identity: Female Cognitive needs: No Hearing needs: No Vision needs: Yes Questionnaire PHQ-9 Over the last 2 weeks, how often have you been bothered by any of the following problems? 1. Little interest or pleasure in doing things: not at all 2. Feeling down, depressed, or hopeless: not at all 3. Trouble falling or staying asleep, or sleeping too much: several days 4. Feeling tired or having little energy: several days 5. Poor appetite or overeating: not at all 6. Feeling bad about yourself - or that you are a failure or have let yourself or your family down: not at all 7. Trouble concentrating on things, such as reading the newspaper or watching television: not at all 8. Moving or speaking so slowly that other people could have noticed. Or the opposite - being so fidgety or restless that you have been moving around a lot more than usual: not at all 9. Thoughts that you would be better off or of hurting yourself in some way: not at all Total score: 2 Depression Screening Interpretation: Positive Depression Screening Done: Yes 37251 - PHQ-9 Billing: Yes Source: Developed by Drs. Dell Vasquez, Justa Enrique, Ronald Farmer and colleagues, with an educational meaghan from [employer]. Thrive Questionnaire Date Thrive assessed: 03/21/25 I am a: Patient What is your living situation today?: I have a steady place to live Within the past 12 months, did the food you bought not last and you didn't have the money to get more?: Never true Within the past 12 months, did you worry whether your food would run out before you got money to buy more?: Never true Do you have trouble paying for medicines?: No Do you have trouble getting transportation to medical appointments?: No Do you have trouble paying your heating and electricity bill?: No Do you have trouble taking care of your child, family member or friend?: No Do you have trouble with day-to-day activities such as bathing, preparing meals, shopping, managing finances, etc.?: No Are you currently unemployed and looking for a job?: No Are you interested in more education?: No Please select the resources that you would like help with: None Currently or been in a relationship where the following occur: No concerns reported THRIVE Score: 0 AUDIT C Alcohol Use Questionnaire (AUDIT-C) 1. How often do you have a drink containing alcohol?: 2-4 times a month 2. How many drinks containing alcohol do you have on a typical day when you are drinking?: 1 or 2 3. How often do you have six or more drinks on one occasion?: Less than monthly Total Score: 3 BRENT-7 AMB Questionnaire BRENT-7 Date BRENT - 7 assessed: 03/21/25 Feeling nervous, anxious, or on edge: 1 = Several days Not being able to stop or control worryin = Not at all Worrying too much about different things: 1 = Several days Trouble relaxin = Several days Being so restless that it is hard to sit still: 0 = Not at all Becoming easily annoyed or irritable: 0 = Not at all Feeling afraid as if something awful might happen: 0 = Not at all Total BRENT-7 score (0-4 normal; 5-9 mild; 10-14 moderate; 15-21 severe): 3 Source: Developed by Drs. Dell Vasquez, Justa Enrique, Ronald Farmer and colleagues, with an educational meaghan from [employer]. Review of Systems Const Denies poor appetite and Denies weakness Eyes Denies no additional complaints ENT Reports Normal hearing present, Denies dizziness, Denies nasal congestion, Denies tinnitus and Denies sore throat Card Denies chest pain, Denies syncope, Denies rapid heart rate and Denies dyspnea Resp Denies cough and Denies dyspnea GI Denies change in stool character, Reports constipation, Denies diarrhea, Denies nausea and Denies vomiting Denies urinary frequency, Denies difficulty voiding and Denies dysuria Neuro Reports Normal hearing present, Denies confusion, Denies dizziness, Denies syncope and Denies weakness Psych Denies confusion Physical exam (Primary Care) Vital Signs: Last Vital Signs Temp 97.1 F 03/21/25 13:51 BP 122/84 03/21/25 13:51 BMI result Body Mass Index 21.1 Tobacco/Smoking Status: Tobacco use Status Tobacco use date assessed 03/21/25 03/21/25 13:56 Patient Tobacco Use Status Former Tobacco user 03/21/25 13:56 Tobacco use type Cigarette 03/21/25 13:56 e-Cigarette/Vaping Use Never Used 03/21/25 13:56 PHQ-9: PHQ-9 Score PHQ-9: Total score 2 03/21/25 13:56 Depression Screening Interpretation: Positive Thrive Assessment: Date of Thrive Assessment Date Thrive assessed 03/21/25 03/21/25 13:56 Currently or been in a relationship where the following occur: No concerns reported Const General: No confusion Orientation/consciousness: No confusion HENMT Head: Yes normocephalic Ears: external ears normal and TM's normal bilaterally Face and sinus: Yes normal facial exam Mouth: moist mucous membranes Throat: Yes tonsils normal Eyes Conjunctivae: conjunctivae normal Pupils: Equal, round and reactive pupils present and Pupil accommodation reflex normal Direct Ophthalmoscopy: normal light reflex Neck Neck: No lymphadenopathy Thyroid: Thyroid normal Chest Chest palpation & inspection: normal inspection of the chest Resp Effort & Inspection: normal respiratory effort and no audible wheezes Auscultation: clear to auscultation bilaterally, no crackles, no wheezes and lung sounds not diminished Cardio Rate: regular rate Rhythm: regular rhythm Peripheral pulses: radial pulses present and dorsalis pedis present GI Palpation (GI): no masses Auscultation: normal bowel sounds and normoactive bowel sounds Rectal Exam - Female: deferred Skin General skin exam: no rashes or lesions noted Rashes: no rashes Neuro General: No confusion Cranial nerves: Yes Equal, round and reactive pupils present and Yes Normal hearing present Cognition (Neuro): normal cognition Gait exam (Neuro): Normal gait present Motor exam (neuro): 5/5 motor strength present throughout Deep tendon reflexes (DTR's): Right brachioradialis reflex intensity grade: 2+, Left brachioradialis reflex intensity grade: 2+, Right patellar reflex intensity grade: 2+ and Left patellar reflex intensity grade: 2+ Extrem General: No edema Coding Level of Care Code Est Pt Prev Care 40-64y(83553) Diagnoses Annual physical exam Z00.00 Breast cancer screening by mammogram Z12.31 Gastroesophageal reflux disease without esophagitis K21.9 Esophagitis presence: without esophagitis Complex cyst of uterine adnexa N83.8 Uterine myoma D25.9 Generalized anxiety disorder F41.1 Additional Codes PHQ-9 - 98091 - PHQ-9 Billing: Yes ([id number]) Assessment & Plan Assessment & Plan (1) Annual physical exam: Code(s): Z00.00 - Encounter for general adult medical examination without abnormal findings Category: Medical Plan: Patient is advised to eat healthy, keep well hydrated, keep active and have adequate sleep. (2) Breast cancer screening by mammogram: Code(s): Z12. - Encounter for screening mammogram for malignant neoplasm of breast Category: Medical Plan: Patient is reminded about the mammogram as she is 2 years behind (3) GERD (gastroesophageal reflux disease): Code(s): K21.9 - Gastro-esophageal reflux disease without esophagitis Category: Medical Qualifiers: Esophagitis presence: without esophagitis Qualified Code(s): K21.9 - Gastro-esophageal reflux disease without esophagitis Plan: Avoid the foods that causes that usually spicy foods, tomato products, juices, coffee, soda and foods that your sensitive to. After eating do not lie down, allow 3-4 hours before in lie down. And keep the head of bed above 30 degrees to avoid the acid from going up. (4) Complex cyst of uterine adnexa: Code(s): N83.8 - Other noninflammatory disorders of ovary, fallopian tube and broad ligament Category: Medical Plan: Patient follows up with Gynecology (5) Uterine myoma: Code(s): D25.9 - Leiomyoma of uterus, unspecified Category: Medical Plan: Patient follows up with Gynecology (6) Generalized anxiety disorder: Comment: Declined any referral for counseling, Code(s): F41.1 - Generalized anxiety disorder Category: Social Hx Plan: Continue with medication p.r.n. Plan History of Present Illness The patient is a 44-year-old female presenting for a physical exam. She has a past medical history of gastroesophageal reflux disease (GERD), generalized anxiety disorder, and a recent left middle finger paronychia. Her last visit was in March 2024. The patient is actively followed by gynecology for abnormal uterine bleeding, a 3.3 cm right adnexal cyst, and a uterine fibroid, and was last seen by them in March. Her immigration officer is monitoring these conditions and plans to check tumor markers; she has two more ultrasounds scheduled. She reports a history of taking lorazepam (Ativan) as needed for anxiety, particularly before appointments. There has been difficulty obtaining refills, as her dentist also prescribed it for dental procedures, which triggered a safety flag in the pharmacy system. She has undergone multiple dental procedures over the past year, including wisdom teeth extraction and veneers. Past laboratory work from February 15, 2025, showed macrocytosis. Her family history is significant for ovarian cancer in her grandmother, pancreatic cancer in her great-grandfather, and heart problems in her father. Her sister had a benign breast lump removed. She has a history of cholecystectomy. Her current medications and supplements include vitamin C, B pollen, and vitamin B12. She takes Zyrtec seasonally and has not been taking biotin recently. She has known allergies to oxycodone, Benadryl, and codeine, all of which cause hives. Health Maintenance The patient was reminded that she is 2 years overdue for a mammogram and was advised to schedule one. Fasting blood work was ordered, which she can have done at the lab when ready. The tetanus vaccine is up to date. Social History - Nutritional Intake: The patient reports she has a snack at night, stating it helps her stay asleep. Review of Systems - General: Reports experiencing trouble sleeping last month. Denies any new lumps or bumps. - Eyes: Reports worsening vision and now needs to wear glasses all the time. - Ears: Reports an episode of intense itching in one ear that woke her from sleep, which she suspected could be related to eczema or allergies. - Abdomen: Denies abdominal pain. - Psychiatric: Reports anxiety, for which she takes Ativan before appointments. - Integumentary: Reports Raynaud's phenomenon, with her hands being either very hot or cold. Physical Exam General: Cooperative, healthy appearing, comfortable, no acute distress and well developed Orientation: Patient oriented x3 Limitations: No limitations Head: Normal to inspection Ears: Hearing grossly normal bilaterally, but patient reports itching and redness in one ear, likely due to allergies or eczema Nose: Normal external nose present Face and sinus: Normal facial exam Eyes: Appearance normal, both eyes and all related structures, but patient reports needing to wear glasses all the time now Neck: Normal visual inspection and Yes full ROM Respiratory: Normal respiratory effort and able to speak in complete sentences. Clear to auscultation bilaterally Cardiovascular: Regular rate and rhythm. Normal S1 and S2 GI: Normal to inspection. Soft to palpation and nontender Skin: No rashes or lesions noted, except for redness in one ear Neuro: Patient oriented x3 Extremities: Normal to inspection, but patient reports Raynaud's phenomenon affecting hands in cold weather Results - Labs: A complete blood count from February 15, 2025, revealed macrocytosis. - Tests: A thyroid test was performed in February. - Diagnostics: An ultrasound revealed a 3.3 cm right adnexal cyst. Plan Patient was informed and verbally consented to the use of an ambient scribe for clinic note documentation during this visit. 1. Generalized Anxiety Disorder The patient reports using lorazepam for situational anxiety, especially for medical and dental appointments. Recent difficulty with refills was secondary to overlapping prescriptions from her dentist, which created a system flag. A new prescription for lorazepam was sent to her preferred pharmacy, [facility]. The patient was instructed on how to use the office's patient portal for future communication to streamline refill requests. 2. Ovarian Cyst And Uterine Fibroid The patient is under the care of a immigration officer for a 3.3 cm right adnexal cyst and uterine fibroids, which are associated with abnormal bleeding. She is scheduled for two follow-up ultrasounds and her immigration officer is planning to check tumor markers, such as CA-125. She will continue to follow up with gynecology for management. 3. Otitis Externa The patient reported waking from sleep with an itchy ear, possibly related to allergies, eczema, or new pillows. Examination revealed mild redness in the external ear. She is advised to apply vwnl-vcu-sovrgsg cortisone cream to the external part of the ear, not inside the canal, to decrease the redness. Discussion Notes I discussed the patient's concern about her lorazepam prescription. I explained that the refill was blocked by the system because her dentist had also prescribed it, which acts as a safety measure. I sent a new prescription to her updated preferred pharmacy and instructed her on how to sign up for the patient portal to facilitate easier communication for future requests. We reviewed the follow-up plan for her ovarian cyst and fibroids, noting her immigration officer is monitoring them with ultrasounds and plans to check tumor markers, which is important given her family history of ovarian cancer. I reminded her about her overdue mammogram and the importance of completing it. I also placed an order for fasting blood work, which she can get at her convenience, and we coordinated this with the labs requested by her FRAME TABLE OPERATOR HELPER to avoid an extra blood draw. For her complaint of an itchy ear, I noted some redness on exam and recommended applying external nqlk-fjq-bbvlhro cortisone cream. I also advised that, for future medical visits, it is helpful to leave one fingernail without rwandan, as it can interfere with pulse oximeter readings. Patient Instructions - Please schedule your mammogram, as you are two years overdue. - Go to the lab for fasting blood work. Do not eat or drink anything except sips of water after dinner the night before your blood draw. - Your prescription for lorazepam (Ativan) has been sent to the [facility] at [facility]. - Please sign up for the patient portal at the checkout desk. This will allow you to send me messages directly. - For the itchiness in your ear, you can apply a small amount of dcqm-jzp-qnqrcbo cortisone cream on the outside part of your ear. Do not put it inside the ear canal. - Continue to follow up with your immigration officer for your ovarian cyst and fibroids. - In the future, try to leave one fingernail free of rwandan, as the color can prevent medical devices from reading your oxygen level. Orders: Orders Comprehensive Met. Panel Today K21.9 - Gastro-esophageal reflux disease without esophagitis Free T4 (Free Thyroxine) Today K21.9 - Gastro-esophageal reflux disease without esophagitis Thyroid Stimulating Hormone Today K21.9 - Gastro-esophageal reflux disease without esophagitis Vitamin D 25-OH Total Today K21.9 - Gastro-esophageal reflux disease without esophagitis UA CC w/rflx Micro + Cult Today K21.9 - Gastro-esophageal reflux disease without esophagitis, R30.0 - Dysuria IRON PROFILE Today K21.9 - Gastro-esophageal reflux disease without esophagitis Complete Blood Count Auto Diff Today K21.9 - Gastro-esophageal reflux disease without esophagitis Lipid Panel Today E78.00 - Pure hypercholesterolemia, unspecified, K21.9 - Gastro-esophageal reflux disease without esophagitis Vitamin B12 and Folate Today K21.9 - Gastro-esophageal reflux disease without esophagitis Ferritin Today K21.9 - Gastro-esophageal reflux disease without esophagitis Medications: Refilled lorazepam 1 mg PO DAILY PRN 20 tabs 0RF anxiety F41.1 - Generalized anxiety disorder Discontinued lorazepam Discontinued Reason: Doctor's Order 1 mg PO DAILY PRN 20 tabs 0RF anxiety F41.1 - Generalized anxiety disorder
--- OUTSIDE RECORDS SUMMARY | 2025-03-21 16:02 | XMS_ITS | Clinical Summary ---
Author Organization [facility] [place] [address] Care Team Providers Care Warehouse Helper Name Role Phone Unavailable Primary Care Provider [...]
--- OUTSIDE RECORDS SUMMARY | 2025-03-21 16:02 | XMS_ITS | Encounter Summary ---
Author Organization [facility] Address [address] [place] [id number] Phone Care Team Providers Care Steam Plant Control Room Operator Name Role Phone Edilia Wiley MD Primary Care Provider [phone] Encounter Details Date Type Department Care Team (Late st Contact Info) Description 01/15/2023 Procedure Pass [facility], Ct Scan - [facility] [address] [place] [address] Social History Tobacco Use Types Packs/Day Years [...] 5:01 PM EDT Za Crawford RN * [place] Suicide Severity Rating Scale (Screener/Recent Self-Report) Question [...] documented as of this encounter Care Teams Steam Plant Control Room Operator Relationship Specialty Start Date End Date Edilia Wiley MD [address] [place] [id number] PCP - General 11/09/13 documented as of this encounter Additional Source Comments The information contained in this document represents components of the legal health record. It is not the complete legal health record.[facility]
--- OUTSIDE RECORDS SUMMARY | 2025-03-21 16:02 | XMS_ITS | Clinical Summary ---
Author Organization [facility] Address [address] [facility] [address] [place] [id number] Phone Care Team Providers Care Precast Concrete Ironworker Name Role Phone Edilia Wiley MD Primary Care Provider [phone] Allergies Active Allergy Reactions Criticality Noted Date [...] Medical Devices Not on file Insurance [place] [address] [address] [place] [address] ACO [facility] Care Teams Precast Concrete Ironworker Relationship Specialty Start Date End Date Edilia Wiley MD [address] [place] [address] [place] [id number] PCP - General 11/09/13 Additional Source Comments The information contained in this document represents components of the legal health record. It is not the complete legal health record.[facility]
== END 2025-03-21 15:14 | disposition home or self-care (01) ==
LOC: HO.HMCH 13:49
PROVIDERS: PCP Internal Medicine; Visit Provider Internal Medicine
DX: Z00.00 Encounter for general adult medical examination without abnormal findings (principal); Z12.31 Encounter for screening mammogram for malignant neoplasm of breast; K21.9 Gastro-esophageal reflux disease without esophagitis; N83.8 Other noninflammatory disorders of ovary, fallopian tube and broad ligament; D25.9 Leiomyoma of uterus, unspecified; F41.1 Generalized anxiety disorder

== ENCOUNTER → 2025-03-21 13:48 | Outpatient (BNVA) | payer OTHER, SELFPAY | PROVIDERS: PCP Internal Medicine; Visit Provider Internal Medicine | DX: Z00.00 Encounter for general adult medical examination without abnormal findings (principal); Z12.31 Encounter for screening mammogram for malignant neoplasm of breast; K21.9 Gastro-esophageal reflux disease without esophagitis; N83.8 Other noninflammatory disorders of ovary, fallopian tube and broad ligament; D25.9 Leiomyoma of uterus, unspecified; F41.1 Generalized anxiety disorder | CPT/HCPCS: 96127; 99396 ==